=== PATIENT | male | born 1980 | race Caucasian/White ===

== ENCOUNTER 2016-12-04 22:33 | Inpatient (IN) | payer BC, OTHER ==
[~2016-12-04] VITALS: Ht 180.3 cm; Wt 105.8 kg
[2016-12-04 22:30] VITALS: O2SAT 98
[~2016-12-04 22:33] MED LIST: ADENOSINE IV SOLN 3 MG/ML 2 ML VIAL IV PUSH ONE
[2016-12-04] MEDS ORDERED: LIDOCAINE HCL 1% PF 30 ML VIAL ONE (22:50)
[2016-12-04] MEDS ORDERED: DILTIAZEM HCL 25 MG/5 ML VIAL ONE (22:54)
[2016-12-04 23:00] VITALS: O2SAT 96
[2016-12-04] MEDS ORDERED: fentaNYL CITRATE 250 MCG/5 ML AMP ONE (23:15)
[2016-12-04] MEDS ORDERED: IOHEXOL 350 MG/ML 10 ML VIAL (for RAD DIAG) IV ONE (23:25)
[2016-12-04 23:26] LABS: APTT (PATIENT) 23.1 SEC (24.3-30.1); BASOPHIL % 0.1 % (0.0-2.0); EOSINOPHIL # 0.2 TH/MM3 (0-0.4); EOSINOPHIL % 0.4 % (0.0-4.0); HEMATOCRIT 38.4 % (39.0-51.0); HEMO FLAGS AUTO DIFF; LYMPH % 10.1 % (9.0-44.0); LYMPHOCYTE # 4.1 TH/MM3 (1.0-4.8); MEAN CELL VOLUME 86.3 FL (80.0-100.0); MEAN CORPUSCULAR HEMOGLOBIN 29.3 PG (27.0-34.0); MEAN CORPUSCULAR HGB CONC 33.9 % (32.0-36.0); MONO % 4.4 % (0.0-8.0); PLATELET COUNT 321 TH/MM3 (150-450); PROTHROMBIN TIME - PATIENT 11.6 SEC (9.8-11.6); RED BLOOD COUNT 4.45 MIL/MM3 (4.50-5.90); RED CELL DISTRIBUTION WIDTH 14.3 % (11.6-17.2); WHITE BLOOD COUNT 40.1 TH/MM3 (4.0-11.0)
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
[2016-12-04 23:40] LABS: BANDS 11 % (0-6); MYELOCYTES 1 % (0-0); NEUTROPHIL # MANUAL DIFF 33.7 TH/MM3 (1.8-7.7); POLYS (SEG NEUTROPHILS) 72 % (16-70); WBC DIFF SAMPLE 100
[2016-12-04 23:41] LABS: PLATELET ESTIMATE SMEAR NORMAL (NORMAL); PLATELET MORPHOLOGY NORMAL (NORMAL); SCAN/DIFF FINAL DIFF MANUAL
--- NOTE | 2016-12-04 23:41 | RADRPT ---
EXAM DATE/TIME: 12/04/2016 22:47 [facility] COMPARISON: No previous studies available for comparison. INDICATIONS : Left sided chest tube placement. MEDICAL HISTORY : None. SURGICAL HISTORY : None. ENCOUNTER: Initial ACUITY: 1 day PAIN SCORE: 10/10 LOCATION: Left chest FINDINGS: There is a left chest tube. A pneumothorax is not seen on this portable supine chest x-ray. The heart size is normal. There is some patchy increased density at the left lung. Left-sided rib fractures ar e seen. CONCLUSION: New left chest tube in good position. Russell Garibay MD on December 04, 2016 at 23:37 Board Certified Radiologist. This report was verified electronically.
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
[2016-12-05] VITALS (20 sets, daily range): BP systolic 84–117; BP diastolic 47–61; PULSE 94–150; RESP 16–17; TEMP 98.3–99.3; O2SAT 98–100
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
[2016-12-05] MEDS ORDERED: NALOXONE HCL 0.4 MG/ML AMP IV PRN (00:30)
[2016-12-05] MEDS ORDERED: SODIUM CHLORIDE 0.9% FLUSH 5 ML FLUSH IVF PRN (00:30)
[2016-12-05] MEDS ORDERED: Post-op Orders (for Pharmacy) MISC XX ONE (00:30)
[2016-12-05] MEDS: metroNIDAZOLE 500 MG INJ 100 ML IV SCH ×4 (00:59→16:37)
[2016-12-05 01:16] LABS: BLOOD GAS BASE EXCESS -8.3 mmol/L (-2-2); BLOOD GAS CARBOXYHEMOGLOBIN 1.2 % (0-4); BLOOD GAS HCO3 18 mmol/L (22-26); BLOOD GAS METHEMOGLOBIN 1.1 % (0-2); BLOOD GAS O2 HGB SATURATION 97 % (90-100); BLOOD GAS OXYGEN CONTENT 15.3 Vol % (12.0-20.0); BLOOD GAS PCO2 50 mmHg (38-42); BLOOD GAS PO2 221 mmHg (61-120); BLOOD GAS TOTAL HGB 10.9 G/DL (12.0-16.0); TEMP CORR TO 98.6
[2016-12-05 01:17] LABS: CRITICAL VALUE YES; FIO2 100 %; STAT NO
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
[2016-12-05] MEDS ORDERED: PROPOFOL 1000 MG/100 ML INJ 100 ML ONE (02:02)
[2016-12-05] MEDS: SODIUM CHLOR 0.9% 1000 ML INJ 1,000 ML IV SCH ×4 (02:30→20:29)
[2016-12-05] MEDS ORDERED: fentaNYL CITRATE 250 MCG/5 ML AMP ONE (02:37)
[2016-12-05] MEDS ORDERED: MIDAZOLAM HCL 2 MG/2 ML VIAL ONE (02:37)
[2016-12-05] MEDS: fentaNYL 2,500 MCG/NS 250 ML IV SCH ×2 (02:54→13:47)
--- NOTE | 2016-12-05 03:02 | RADRPT ---
EXAM DATE/TIME: 12/05/2016 02:34 [facility] COMPARISON: CHEST SINGLE AP, December 04, 2016, 22:47. INDICATIONS : E-T tube placement. MEDICAL HISTORY : None. SURGICAL HISTORY : None. ENCOUNTER: Subsequent ACUITY: 1 day PAIN SCORE: Non-responsive. LOCATION: Bilateral chest FINDINGS: ET tube and NG tube are well placed. The heart size is normal. There is a left-sided chest tube. Ther e is left pleural fluid present. A pneumothorax is not seen on this semiupright portable chest x-ray. Left-sided rib fractures are seen. There is subcutaneous emphysema seen on the left side. There is a drain in the left upper quadrant. CONCLUSION: ET tube in good position. Russell Garibay MD on December 05, 2016 at 2:59 Board Certified Radiologist. This report was verified electronically.
[2016-12-05] MEDS: PANTOPRAZOLE SODIUM 40 MG VIAL IV SCH (03:26)
[2016-12-05 04:45] LABS: HEMATOCRIT 33.6 % (39.0-51.0); MEAN CELL VOLUME 83.4 FL (80.0-100.0); MEAN CORPUSCULAR HEMOGLOBIN 28.5 PG (27.0-34.0); MEAN CORPUSCULAR HGB CONC 34.2 % (32.0-36.0); PLATELET COUNT 199 TH/MM3 (150-450); RED BLOOD COUNT 4.03 MIL/MM3 (4.50-5.90); RED CELL DISTRIBUTION WIDTH 14.9 % (11.6-17.2); REVIEW FLAG FINAL; WHITE BLOOD COUNT 24.1 TH/MM3 (4.0-11.0)
[2016-12-05 05:21] LABS: BICARBONATE 22.4 MEQ/L (21.0-32.0); POTASSIUM 3.9 MEQ/L (3.5-5.1)
[2016-12-05 05:50] LABS: CALCIUM-PROTEIN CORRECTED 8.1 MG/DL (8.5-10.1)
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
[2016-12-05 06:03] LABS: BLOOD GAS BASE EXCESS -4.1 mmol/L (-2-2); BLOOD GAS CARBOXYHEMOGLOBIN 1.3 % (0-4); BLOOD GAS HCO3 20 mmol/L (22-26); BLOOD GAS METHEMOGLOBIN 0.7 % (0-2); BLOOD GAS O2 HGB SATURATION 98 % (90-100); BLOOD GAS OXYGEN CONTENT 13.1 Vol % (12.0-20.0); BLOOD GAS PCO2 35 mmHg (38-42); BLOOD GAS PO2 183 mmHg (61-120); BLOOD GAS TOTAL HGB 9.3 G/DL (12.0-16.0); CRITICAL VALUE NO; DRAW SITE ALINE; FIO2 50 %; STAT NO; TEMP CORR TO 98.6
[2016-12-05] MEDS: PROPOFOL 1000 MG/100 ML IV SCH ×4 (06:22→17:55)
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
[2016-12-05] MEDS ORDERED: DEXTROSE 50% IN WATER 50 ML VIAL(D50) IV PUSH PRN (07:45)
[2016-12-05] MEDS ORDERED: GLUCAGON 1 MG/ML VIAL OTHER PRN (07:45)
[2016-12-05] MEDS ORDERED: POTASSIUM PHOSPHATE MONOBASIC 500 MG TAB PO/TUBE PRN (08:00)
[2016-12-05] MEDS ORDERED: CHLORHEXIDINE GLUCONATE 2 % 1 PACK (2 CLOTHS) TOP PRN (08:00)
[2016-12-05] MEDS ORDERED: POTASSIUM CL 40 MEQ/30 ML LIQ UDC PO/TUBE PRN ×2 (08:00)
[2016-12-05] MEDS ORDERED: MISCELLANEOUS NURSING INFORMATION XX SCH (08:00)
[2016-12-05] MEDS ORDERED: MAGNESIUM SULFATE INJ 4 GM in SODIUM CHLORIDE 0.9% INJ 92 ML IV PRN (08:00)
[2016-12-05] MEDS ORDERED: POTASSIUM CHLOR 20 MEQ PREMIX 100 ML IV PRN ×2 (08:00)
[2016-12-05] MEDS: INSULIN ASPART SUPPLEMENTAL SCALE SQ SCH ×3 (08:00→20:00)
[2016-12-05] MEDS: CHLORHEXIDINE 0.12% (ORAL KIT) 15 ML CUP MT SCH ×2 (08:00→20:28)
[2016-12-05] MEDS ORDERED: POTASSIUM PHOSPHATE INJ 30 MMOL in SODIUM CHLOR 0.9% 250 ML INJ 250 ML IV PRN (08:00)
[2016-12-05] MEDS ORDERED: MAGNESIUM OXIDE 400 MG TAB PO PRN (08:00)
[2016-12-05] MEDS ORDERED: MAGNESIUM SULFATE INJ 2 GM in SODIUM CHLORIDE 0.9% INJ 96 ML IV PRN (08:00)
[2016-12-05] MEDS ORDERED: POTASSIUM CHLOR 40 MEQ PREMIX 100 ML IV PRN (08:00)
[2016-12-05] MEDS ORDERED: POTASSIUM PHOSPHATE MONOBASIC 500 MG TAB PO PRN (08:00)
[2016-12-05] MEDS: SODIUM CHLORIDE 0.9% FLUSH 5 ML FLUSH IVF SCH ×2 (08:55→20:30)
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
[2016-12-05] MEDS ORDERED: LACTATED RINGER'S 1000 ML INJ 2,000 ML IV ONE (12:00)
[2016-12-05] MEDS ORDERED: PHENYLEPH/NS 1000 MCG/10 ML SYR IV ONE (12:00)
[2016-12-05] MEDS ORDERED: NORMOSOL R INJ 3,000 ML IV ONE (12:00)
[2016-12-05] MEDS ORDERED: PROPOFOL 200 MG/20 ML AMP IV ONE (12:00)
[2016-12-05] MEDS ORDERED: SODIUM CHLOR 0.9% 1000 ML INJ 1,000 ML IV ONE (12:45)
[2016-12-05] MEDS ORDERED: ALBUMIN HUMAN 5% 25 GM/500 ML BOTTLE IV ONE (12:45)
[2016-12-05] MEDS ORDERED: TERBUTALINE INJ 1 MG/ML AMP SQ PRN (13:15)
[2016-12-05] MEDS: NOREPINEPHRINE-DEXTROSE DRIP 250 ML IV SCH ×2 (13:48→20:29)
[2016-12-05 14:33] LABS: HEMATOCRIT 25.3 % (39.0-51.0); REVIEW FLAG FINAL
[2016-12-05] MEDS ORDERED: SODIUM CHLOR 0.9% 250 ML INJ 250 ML IV ONE (15:15)
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
--- NOTE | 2016-12-05 19:13 | RADRPT ---
EXAM DATE/TIME: 12/05/2016 18:52 [facility] COMPARISON: No previous studies available for comparison. INDICATIONS : Central line placement. MEDICAL HISTORY : Unobtainable. SURGICAL HISTORY : Unobtainable. ENCOUNTER: Initial ACUITY: 1 day PAIN SCORE: Non-responsive. LOCATION: Left chest subclavian FINDINGS: Lung volumes are small. Patchy airspace opacities are modestly worse in the interim. A small hydropne umothorax is seen of the left apex. Large caliber left chest tube remains in place, near the base. Th ere is a surgical drain in the left upper quadrant. New left subclavian central venous catheter with tip in the superior vena cava. Patient remains intubated. Endotracheal tube tip is about 4 cm above the suzanne. Nasogastric tube cou rses into the stomach. CONCLUSION: 1. New left IJ central venous catheter with tip in the superior vena cava. There is a tiny left apica l hydropneumothorax but probably not related to the central line. Severely comminuted left rib fractu res and a chest tube again noted. 2. Patchy bilateral air space opacities worsening. Lung markings are small. 3. Nasogastric tube, endotracheal tube and left upper quadrant abdominal drain again noted. Russell Bronson MD on December 05, 2016 at 19:09 Board Certified Radiologist. This report was verified electronically.
[2016-12-06] VITALS (19 sets, daily range): BP systolic 93–127; BP diastolic 54–67; PULSE 99–124; RESP 12–24; TEMP 99.1–99.8; O2SAT 97–100
[2016-12-06] MEDS: PANTOPRAZOLE SODIUM 40 MG VIAL IV SCH ×2 (00:25→23:34)
[2016-12-06] MEDS: PROPOFOL 1000 MG/100 ML IV SCH ×5 (00:57→19:42)
[2016-12-06] MEDS: fentaNYL 2,500 MCG/NS 250 ML IV SCH ×2 (00:57→14:57)
[2016-12-06] MEDS: INSULIN ASPART SUPPLEMENTAL SCALE SQ SCH ×4 (02:00→20:00)
[2016-12-06] MEDS: CHLORHEXIDINE GLUCONATE 2 % 1 PACK (2 CLOTHS) TOP SCH (04:00)
[2016-12-06 05:09] LABS: AUTOMATED NEUTROPHIL # 12.2 TH/MM3 (1.8-7.7); BASOPHIL # 0.1 TH/MM3 (0-0.2); BASOPHIL % 0.6 % (0.0-2.0); EOSINOPHIL # 0.3 TH/MM3 (0-0.4); EOSINOPHIL % 1.6 % (0.0-4.0); HEMATOCRIT 27.8 % (39.0-51.0); LYMPH % 12.2 % (9.0-44.0); LYMPHOCYTE # 2.1 TH/MM3 (1.0-4.8); MEAN CELL VOLUME 84.8 FL (80.0-100.0); MEAN CORPUSCULAR HEMOGLOBIN 29.9 PG (27.0-34.0); MEAN CORPUSCULAR HGB CONC 35.2 % (32.0-36.0); MONO % 13.3 % (0.0-8.0); NEUT % 72.3 % (16.0-70.0); PLATELET COUNT 147 TH/MM3 (150-450); RED BLOOD COUNT 3.28 MIL/MM3 (4.50-5.90); RED CELL DISTRIBUTION WIDTH 15.3 % (11.6-17.2); WHITE BLOOD COUNT 16.9 TH/MM3 (4.0-11.0)
[2016-12-06 05:13] LABS: HEMO FLAGS AUTO DIFF
[2016-12-06 05:42] LABS: CALCIUM-PROTEIN CORRECTED 8.2 MG/DL (8.5-10.1); POTASSIUM 3.3 MEQ/L (3.5-5.1); TOTAL BILIRUBIN ADULT 0.5 MG/DL (0.2-1.0)
[2016-12-06] MEDS: SODIUM CHLOR 0.9% 1000 ML INJ 1,000 ML IV SCH ×4 (05:56→23:13)
[2016-12-06 06:12] LABS: BANDS 26 % (0-6); BASOPHILS 1 % (0-2); EOSINOPHILS 2 % (0-4); PLATELET ESTIMATE SMEAR NORMAL (NORMAL); PLATELET MORPHOLOGY NORMAL (NORMAL); POLYS (SEG NEUTROPHILS) 57 % (16-70); SCAN/DIFF FINAL DIFF MANUAL; WBC DIFF SAMPLE 100
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
--- NOTE | 2016-12-06 06:28 | RADRPT ---
EXAM DATE/TIME: 12/06/2016 05:01 [facility] COMPARISON: CHEST SINGLE AP, December 05, 2016, 18:52. INDICATIONS : Shortness of breath. MEDICAL HISTORY : Unobtainable. SURGICAL HISTORY : Unobtainable. ENCOUNTER: Subsequent ACUITY: 3 days PAIN SCORE: Non-responsive. LOCATION: Bilateral chest FINDINGS: ET tube, left subclavian line, NG tube and left chest tube are well placed. There continues to be a s mall left hydropneumothorax seen. Left rib fractures are seen. There is consolidation or atelectasis at the left base. Right lung is clear. CONCLUSION: Small left hydropneumothorax with a left chest tube in place. Russell Garibay MD on December 06, 2016 at 6:25 Board Certified Radiologist. This report was verified electronically.
[2016-12-06] MEDS: POTASSIUM CHLOR 40 MEQ PREMIX 100 ML IV PRN (06:29)
[2016-12-06 06:45] LABS: BLOOD GAS BASE EXCESS -2.8 mmol/L (-2-2); BLOOD GAS CARBOXYHEMOGLOBIN 1.7 % (0-4); BLOOD GAS HCO3 21 mmol/L (22-26); BLOOD GAS METHEMOGLOBIN 0.8 % (0-2); BLOOD GAS O2 HGB SATURATION 96 % (90-100); BLOOD GAS OXYGEN CONTENT 13.3 Vol % (12.0-20.0); BLOOD GAS PCO2 34 mmHg (38-42); BLOOD GAS PO2 94 mmHg (61-120); BLOOD GAS TOTAL HGB 9.8 G/DL (12.0-16.0); CRITICAL VALUE NO; OXYGEN DEVICE VENTILATOR; TEMP CORR TO 98.6
[2016-12-06 06:46] LABS: DRAW SITE ART LINE; FIO2 35 %; VENT SETTINGS PRVC
[2016-12-06 06:47] LABS: STAT NO
[2016-12-06] MEDS: CHLORHEXIDINE 0.12% (ORAL KIT) 15 ML CUP MT SCH ×2 (07:41→21:51)
[2016-12-06] MEDS: SODIUM CHLORIDE 0.9% FLUSH 5 ML FLUSH IVF SCH ×2 (07:42→21:50)
[2016-12-06] MEDS: TOBRAMYCIN SULFATE 0.3% OPTH OINT 3.5 GM TUBE RIGHT EYE SCH (08:55)
[2016-12-06] MEDS: SODIUM PHOSPHATE INJ 30 MMOL in SODIUM CHLOR 0.9% 250 ML INJ 240 ML IV PRN (08:55)
[2016-12-06] MEDS ORDERED: FUROSEMIDE 40 MG/4 ML VIAL IV PUSH ONE (09:45)
[2016-12-06] MEDS ORDERED: LIDOCAINE HCL 2% 100 MG/5 ML SYRINGE ONE (09:54)
[2016-12-06] MEDS ORDERED: ATROPINE SULFATE 1 MG/10 ML SYRINGE ONE (09:54)
[2016-12-06] MEDS ORDERED: EPINEPHrine HCL (1:10,000) 1 MG/10 ML SYRINGE ONE (09:54)
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
--- NOTE | 2016-12-06 11:38 | RADRPT ---
EXAM DATE/TIME: 12/06/2016 10:48 [facility] COMPARISON: CT LUMBAR SPINE W/O CONTRAST, December 05, 2016, 9:45. INDICATIONS : Post trauma spinal fracture. MEDICAL HISTORY : Hypertension. SURGICAL HISTORY : Tonsillectomy. Splenectomy. hernia ENCOUNTER: Subsequent ACUITY: 2 day PAIN SCORE: Nonresponsive. LOCATION: back TECHNIQUE: Multiplanar multisequence MRI of the lumbar spine was performed without contrast. FINDINGS: The most caudal appearing lumbar vertebra is numbered as L5. VERTEBRAE: There is edema and fracture within L3 vertebral body with mild depression of the superior endplate. F racture extends through the vertebral body and a longitudinal dimension. No significant retropulsion of posterior fragments. No canal stenosis. There is also fracture at T12. Disc spaces are maintained. CONUS: Normal level and configuration. T12-L1: The thecal sac has a normal diameter. No evidence of disc bulge or protrusion. The neural foramina are patent bilaterally. L1-L2: The thecal sac has a normal diameter. No evidence of disc bulge or protrusion. The neural foramina are patent bilaterally. L2-L3: The thecal sac has a normal diameter. No evidence of disc bulge or protrusion. The neural foramina are patent bilaterally. L3-L4: The thecal sac has a normal diameter. No evidence of disc bulge or protrusion. The neural foramina are patent bilaterally. L4-L5: Mild broad-based protrusion abuts the ventral thecal sac. No canal stenosis. The neural foramina are patent bilaterally. L5-S1: Mild right paracentral protrusion abuts the ventral thecal sac and abuts the right S1 nerve root in l ateral recess. No canal stenosis. The neural foramina are patent bilaterally. CONCLUSION: 1. Mild broad-based protrusion at L4-5 without canal stenosis. 2. Mild right paracentral protrusion at L5-S1 abuts the right S1 nerve root lateral recess without ca nal stenosis. 3. Mild fracture through L3 vertebral body. No retropulsion of posterior fragments or canal stenosis. 4. Fracture at T12. Laci Crandall MD on December 06, 2016 at 11:29 Board Certified Radiologist. This report was verified electronically.
--- NOTE | 2016-12-06 11:46 | RADRPT ---
EXAM DATE/TIME: 12/06/2016 10:48 [facility] COMPARISON: CT THORACIC SPINE W/O CONTRAST, December 05, 2016, 9:45. INDICATIONS : Post trauma spinal fracture. MEDICAL HISTORY : Hypertension. SURGICAL HISTORY : Tonsillectomy. Splenectomy. hernia ENCOUNTER: Subsequent ACUITY: 2 day PAIN SCORE: Nonresponsive. LOCATION: back TECHNIQUE: Multiplanar multisequence MRI of the thoracic spine was performed. FINDINGS: VERTEBRA: Mild fracture through the superior endplate at T11. No retropulsion of posterior fragments or canal s tenosis. There is also a fracture at T12 extending through the vertebral bodies vertically. Slight lo ss of height. Minimal retropulsion of posterior fragments superiorly abuts the ventral thecal sac. No canal stenosis. Extensive soft tissue injury posteriorly at the cervical thoracic junction extending to C5 region. Fracture on the spinous process at T9 not well-seen on MRI. ALIGNMENT: Normal. CORD: Normal position and configuration. Bilateral pleural effusions. Subcapsular hematoma left kidney posteriorly. T1-T2: Normal. T2-T3: The thecal sac has a normal diameter. No evidence of disc bulge or protrusion. T3-T4: The thecal sac has a normal diameter. No evidence of disc bulge or protrusion. T4-T5: The thecal sac has a normal diameter. No evidence of disc bulge or protrusion. T5-T6: The thecal sac has a normal diameter. No evidence of disc bulge or protrusion. T6-T7: The thecal sac has a normal diameter. No evidence of disc bulge or protrusion. T7-T8: The thecal sac has a normal diameter. No evidence of disc bulge or protrusion. T8-T9: The thecal sac has a normal diameter. No evidence of disc bulge or protrusion. T9-T10: The thecal sac has a normal diameter. No evidence of disc bulge or protrusion. T10-T11: The thecal sac has a normal diameter. No evidence of disc bulge or protrusion. T11-T12: The thecal sac has a normal diameter. No evidence of disc bulge or protrusion. T12-L1: The thecal sac has a normal diameter. No evidence of disc bulge or protrusion. CONCLUSION: 1. Fractures at T11 and T12. Minimal retropulsion of superior fragment posteriorly at T12 but no juan l stenosis. 2. No canal stenosis. 3. Extensive soft tissue injury posteriorly along the upper thoracic spine. Laci Crandall MD on December 06, 2016 at 11:37 Board Certified Radiologist. This report was verified electronically.
--- NOTE | 2016-12-06 11:53 | RADRPT ---
EXAM DATE/TIME: 12/06/2016 10:48 [facility] COMPARISON: CT CERVICAL SPINE W/O CONTRAST, December 04, 2016, 23:20. INDICATIONS : Post trauma spinal fracture. MEDICAL HISTORY : Hypertension. SURGICAL HISTORY : Tonsillectomy. Splenectomy. hernia ENCOUNTER: Subsequent ACUITY: 2 day PAIN SCORE: Nonresponsive. LOCATION: back TECHNIQUE: Multiplanar, multisequence MRI examination of the cervical spine was performed. FINDINGS: VERTEBRAE: Normal vertebral body height. Homogeneous marrow signal. There are fractures through T1 and T2 spino us processes. Extensive soft tissue injury in this region with hematoma. ALIGNMENT: No evidence of subluxation. CORD: Normal configuration and signal. POST FOSSA: The cerebellar tonsils are normal in position. C2-C3: The thecal sac has a normal configuration. There is no evidence of disc herniation or spinal canal s tenosis. The neural foramina are patent bilaterally. C3-C4: The thecal sac has a normal configuration. There is no evidence of disc herniation or spinal canal s tenosis. The neural foramina are patent bilaterally. C4-C5: The thecal sac has a normal configuration. There is no evidence of disc herniation or spinal canal s tenosis. The neural foramina are patent bilaterally. C5-C6: The thecal sac has a normal configuration. There is no evidence of disc herniation or spinal canal s tenosis. The neural foramina are patent bilaterally. C6-C7: The thecal sac has a normal configuration. There is no evidence of disc herniation or spinal canal s tenosis. The neural foramina are patent bilaterally. C7-T1: The thecal sac has a normal configuration. There is no evidence of disc herniation or spinal canal s tenosis. The neural foramina are patent bilaterally. CONCLUSION: 1. Unremarkable cervical spine. No canal stenosis. 2. Fractures of the spinous process at T1 and T2. Soft tissue injury with soft tissue hematoma sample washer iorly. Laci Crandall MD on December 06, 2016 at 11:48 Board Certified Radiologist. This report was verified electronically.
[2016-12-06 13:58] LABS: BLOOD GAS BASE EXCESS -3.5 mmol/L (-2-2); BLOOD GAS CARBOXYHEMOGLOBIN 1.1 % (0-4); BLOOD GAS HCO3 21 mmol/L (22-26); BLOOD GAS METHEMOGLOBIN 0.9 % (0-2); BLOOD GAS O2 HGB SATURATION 98 % (90-100); BLOOD GAS OXYGEN CONTENT 15.2 Vol % (12.0-20.0); BLOOD GAS PCO2 39 mmHg (38-42); BLOOD GAS PO2 237 mmHg (61-120); BLOOD GAS TOTAL HGB 10.6 G/DL (12.0-16.0); TEMP CORR TO 98.6
[2016-12-06 13:59] LABS: CRITICAL VALUE NO; OXYGEN DEVICE VENT
[2016-12-06 14:01] LABS: DRAW SITE RT RADIAL; FIO2 50 %; STAT NO; VENT SETTINGS APRV/4/30/1/5PSV
[2016-12-06] MEDS: METOPROLOL TARTRATE 25 MG TAB PO SCH ×2 (14:47→21:00)
--- NOTE | 2016-12-06 16:21 | PD.PROCEDR ---
Procedure Note Procedure DX: Hypoxemic Respiratory Failure (J96.01) OP: Insertion Right Radial Artery Line ([id number]) Procedure: Emmanuel test normal right hand. Right wrist supinated, preppe and draped. Right radial artery cannulated and wire advanced. Cannula passed over wire to 3cm. Good waveform observed. Dressing applied. Circulation to hand intact after procedure. Rich Leija MD Dec 06, 2016 16:21
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
[2016-12-07] VITALS (18 sets, daily range): BP systolic 113–151; BP diastolic 61–77; PULSE 94–114; RESP 12–18; TEMP 98.2–99.6; O2SAT 97–100
[2016-12-07] MEDS: PROPOFOL 1000 MG/100 ML IV SCH ×4 (00:48→23:30)
[2016-12-07] MEDS: INSULIN ASPART SUPPLEMENTAL SCALE SQ SCH ×4 (01:30→20:00)
[2016-12-07] MEDS: NOREPINEPHRINE-DEXTROSE DRIP 250 ML IV SCH (02:18)
[2016-12-07] MEDS: CHLORHEXIDINE GLUCONATE 2 % 1 PACK (2 CLOTHS) TOP SCH (04:01)
[2016-12-07] MEDS: SODIUM CHLOR 0.9% 1000 ML INJ 1,000 ML IV SCH ×3 (04:02→23:30)
[2016-12-07 04:23] LABS: HEMATOCRIT 28.9 % (39.0-51.0); MEAN CELL VOLUME 85.6 FL (80.0-100.0); MEAN CORPUSCULAR HEMOGLOBIN 29.7 PG (27.0-34.0); MEAN CORPUSCULAR HGB CONC 34.7 % (32.0-36.0); PLATELET COUNT 172 TH/MM3 (150-450); RED BLOOD COUNT 3.38 MIL/MM3 (4.50-5.90); RED CELL DISTRIBUTION WIDTH 15.6 % (11.6-17.2); WHITE BLOOD COUNT 18.4 TH/MM3 (4.0-11.0)
[2016-12-07 04:46] LABS: HEMO FLAGS AUTO DIFF
[2016-12-07 05:01] LABS: BICARBONATE 23.9 MEQ/L (21.0-32.0); POTASSIUM 3.5 MEQ/L (3.5-5.1)
--- NOTE | 2016-12-07 05:09 | RADRPT ---
EXAM DATE/TIME: 12/07/2016 04:07 [place] COMPARISON: CHEST SINGLE AP, December 06, 2016, 5:01. INDICATIONS : Shortness of breath. MEDICAL HISTORY : Hypertension. SURGICAL HISTORY : Tonsillectomy. Splenectomy. Hernia ENCOUNTER: Subsequent ACUITY: 4 - 6 days PAIN SCORE: Non-responsive. LOCATION: Bilateral chest FINDINGS: ET tube, NG tube, left subclavian line and left chest tube are well placed. There is a minimal pneumo thorax seen over the left apex measuring 3-4 mm in thickness. There is a drain in the left upper quad rant. There is increased density at the right lung base. The left lung appears relatively clear. CONCLUSION: 1. Minimal left pneumothorax with a left-sided chest tube in place. 2. Right lower lung atelectasis or consolidation. Russell Garibay MD on December 07, 2016 at 5:05 Board Certified Radiologist. This report was verified electronically.
[2016-12-07 05:12] LABS: BLOOD GAS BASE EXCESS -4.8 mmol/L (-2-2); BLOOD GAS CARBOXYHEMOGLOBIN 1.1 % (0-4); BLOOD GAS HCO3 19 mmol/L (22-26); BLOOD GAS METHEMOGLOBIN 0.8 % (0-2); BLOOD GAS O2 HGB SATURATION 98 % (90-100); BLOOD GAS OXYGEN CONTENT 14.3 Vol % (12.0-20.0); BLOOD GAS PCO2 31 mmHg (38-42); BLOOD GAS PO2 252 mmHg (61-120); BLOOD GAS TOTAL HGB 9.9 G/DL (12.0-16.0); CRITICAL VALUE YES; TEMP CORR TO 98.6
[2016-12-07 05:13] LABS: DRAW SITE ALINE; FIO2 50 %; STAT NO
[2016-12-07 05:16] LABS: CALCIUM-PROTEIN CORRECTED 8.5 MG/DL (8.5-10.1)
[2016-12-07] MEDS: fentaNYL 2,500 MCG/NS 250 ML IV SCH ×2 (05:27→23:30)
[2016-12-07 07:05] LABS: BANDS 1 % (0-6); EOSINOPHILS 5 % (0-4); MYELOCYTES 1 % (0-0); NEUTROPHIL # MANUAL DIFF 14.2 TH/MM3 (1.8-7.7); POLYS (SEG NEUTROPHILS) 75 % (16-70); WBC DIFF SAMPLE 100
[2016-12-07 07:06] LABS: PLATELET ESTIMATE SMEAR NORMAL (NORMAL); PLATELET MORPHOLOGY NORMAL (NORMAL)
[2016-12-07 07:07] LABS: SCAN/DIFF FINAL DIFF MANUAL
[2016-12-07] MEDS: SODIUM CHLORIDE 0.9% FLUSH 5 ML FLUSH IVF SCH ×2 (08:01→20:57)
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
[2016-12-07] MEDS: CHLORHEXIDINE 0.12% (ORAL KIT) 15 ML CUP MT SCH ×2 (09:52→20:57)
[2016-12-07] MEDS: METOPROLOL TARTRATE 25 MG TAB PO SCH ×2 (09:52→20:56)
[2016-12-07] MEDS: TOBRAMYCIN SULFATE 0.3% OPTH OINT 3.5 GM TUBE RIGHT EYE SCH (09:53)
[2016-12-07] MEDS ORDERED: BUMETANIDE INJ 1 MG/4 ML VIAL IV PUSH ONE (10:00)
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
--- NOTE | 2016-12-07 22:20 | EKG ---
Date Performed: 12/06/2016 Time Performed: 20:03:21 PTAGE: 36 years EKG: SINUS TACHYCARDIA NONSPECIFIC T-WAVE ABNORMALITY ABNORMAL RHYTHM ECG NO PREVIOUS TRACING DOCTOR: Derrick Caballero Interpretating Date/Time 12/07/2016 22:18:10
[2016-12-07] MEDS: PANTOPRAZOLE SODIUM 40 MG VIAL IV SCH (23:30)
[2016-12-08] VITALS (17 sets, daily range): BP systolic 112–147; BP diastolic 51–77; PULSE 68–96; RESP 12–18; TEMP 98.3–99.4; O2SAT 98–100
[2016-12-08 00:55] LABS: POTASSIUM 4.1 MEQ/L (3.5-5.1)
[2016-12-08] MEDS: INSULIN ASPART SUPPLEMENTAL SCALE SQ SCH ×4 (02:00→20:00)
[2016-12-08] MEDS: CHLORHEXIDINE GLUCONATE 2 % 1 PACK (2 CLOTHS) TOP SCH (04:00)
[2016-12-08 04:57] LABS: AUTOMATED NEUTROPHIL # 15.6 TH/MM3 (1.8-7.7); BASOPHIL # 0.1 TH/MM3 (0-0.2); BASOPHIL % 0.3 % (0.0-2.0); EOSINOPHIL # 0.6 TH/MM3 (0-0.4); EOSINOPHIL % 3.2 % (0.0-4.0); HEMATOCRIT 27.4 % (39.0-51.0); LYMPH % 6.3 % (9.0-44.0); LYMPHOCYTE # 1.3 TH/MM3 (1.0-4.8); MEAN CELL VOLUME 85.9 FL (80.0-100.0); MEAN CORPUSCULAR HEMOGLOBIN 29.5 PG (27.0-34.0); MEAN CORPUSCULAR HGB CONC 34.3 % (32.0-36.0); NEUT % 78.2 % (16.0-70.0); PLATELET COUNT 253 TH/MM3 (150-450); RED BLOOD COUNT 3.19 MIL/MM3 (4.50-5.90); RED CELL DISTRIBUTION WIDTH 15.4 % (11.6-17.2); WHITE BLOOD COUNT 19.9 TH/MM3 (4.0-11.0)
[2016-12-08 04:59] LABS: HEMO FLAGS AUTO DIFF
[2016-12-08 05:25] LABS: BICARBONATE 28.2 MEQ/L (21.0-32.0); MAGNESIUM 2.2 MG/DL (1.5-2.5); POTASSIUM 3.8 MEQ/L (3.5-5.1)
--- NOTE | 2016-12-08 06:23 | RADRPT ---
EXAM DATE/TIME: 12/08/2016 04:51 [facility] COMPARISON: CHEST SINGLE AP, December 07, 2016, 4:07. INDICATIONS : Shortness of breath MEDICAL HISTORY : Hypertension SURGICAL HISTORY : Tonsillectomy. Splenectomy. Hernia ENCOUNTER: Subsequent ACUITY: 4 - 6 days PAIN SCORE: Non-responsive. LOCATION: Bilateral chest FINDINGS: The ET tube, NG tube, and left subclavian line are well placed. The heart size is normal. The lungs a re clear. Left-sided rib fractures are present. There is a surgical drain in the left upper quadrant. Pneumothorax is not seen. CONCLUSION: Left rib fractures. Russell Garibay MD on December 08, 2016 at 6:21 Board Certified Radiologist. This report was verified electronically.
[2016-12-08] MEDS: PROPOFOL 1000 MG/100 ML IV SCH ×3 (07:00→23:34)
[2016-12-08 07:03] LABS: SCAN/DIFF AUTO DIFF CONFIRMED
[2016-12-08] MEDS: SODIUM CHLORIDE 0.9% FLUSH 5 ML FLUSH IVF SCH ×2 (07:17→21:51)
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
[2016-12-08] MEDS ORDERED: FUROSEMIDE 20 MG/2 ML VIAL IV PUSH ONE (07:30)
[2016-12-08] MEDS ORDERED: LABETALOL HCL 100 MG/20 ML VIAL IV PUSH PRN (07:30)
[2016-12-08] MEDS: SODIUM CHLOR 0.9% 1000 ML INJ 1,000 ML IV SCH ×2 (08:16→14:56)
[2016-12-08] MEDS: CHLORHEXIDINE 0.12% (ORAL KIT) 15 ML CUP MT SCH ×2 (08:43→21:52)
[2016-12-08] MEDS: METOPROLOL TARTRATE 25 MG TAB PO SCH ×2 (08:44→21:51)
[2016-12-08] MEDS: TOBRAMYCIN SULFATE 0.3% OPTH OINT 3.5 GM TUBE RIGHT EYE SCH (08:44)
[2016-12-08] MEDS: LISINOPRIL 5 MG TAB PO SCH (08:44)
[2016-12-08] MEDS: DOCUSATE SODIUM 100 MG CAP PO SCH ×2 (08:44→21:51)
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
[2016-12-08] MEDS: SODIUM PHOSPHATE INJ 30 MMOL in SODIUM CHLOR 0.9% 250 ML INJ 240 ML IV PRN (12:39)
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
[2016-12-08 19:29] LABS: BACTERIA, URINE RARE /hpf; BLOOD, URINE NEG (NEG); COMMENT (UR) CATH-CULTURE IND; CULTURE IF INDICATED CATH CULTURE IND; GLUCOSE,URINE TRACE mg/dL (NEG); KETONE, URINE TRACE mg/dL (NEG); MUCUS URINE FEW /lpf (OCC); NITRITE,URINE NEG (NEG); PH, URINE 5.5 (5.0-8.5); URINE COLOR LIGHT-BROWN (YELLW/STRAW)
[2016-12-08] MEDS: MAGNESIUM HYDROXIDE SUSP 30 ML CUP PO SCH (21:51)
[2016-12-08 22:37] LABS: BICARBONATE 33.2 MEQ/L (21.0-32.0); POTASSIUM 3.5 MEQ/L (3.5-5.1)
[2016-12-08] MEDS: PANTOPRAZOLE SODIUM 40 MG VIAL IV SCH (23:34)
[2016-12-08] MEDS: fentaNYL 2,500 MCG/NS 250 ML IV SCH (23:34)
[2016-12-09] VITALS (14 sets, daily range): BP systolic 121–149; BP diastolic 52–67; PULSE 73–100; RESP 12; TEMP 98.7–99.1; O2SAT 100
[2016-12-09] MEDS: POTASSIUM CHLOR 40 MEQ PREMIX 100 ML IV PRN ×2 (01:04→16:23)
[2016-12-09] MEDS: SODIUM PHOSPHATE INJ 30 MMOL in SODIUM CHLOR 0.9% 250 ML INJ 240 ML IV PRN (01:06)
[2016-12-09] MEDS: INSULIN ASPART SUPPLEMENTAL SCALE SQ SCH ×4 (02:00→20:00)
[2016-12-09] MEDS: SODIUM CHLOR 0.9% 1000 ML INJ 1,000 ML IV SCH (03:15)
[2016-12-09] MEDS: CHLORHEXIDINE GLUCONATE 2 % 1 PACK (2 CLOTHS) TOP SCH (04:00)
--- NOTE | 2016-12-09 04:13 | RADRPT ---
EXAM DATE/TIME: 12/09/2016 03:21 [facility] COMPARISON: CHEST SINGLE AP, December 08, 2016, 4:51. INDICATIONS : Shortness of breath. MEDICAL HISTORY : Hypertension. SURGICAL HISTORY : Tonsillectomy. Splenectomy. Hernia. ENCOUNTER: Subsequent ACUITY: 4 - 6 days PAIN SCORE: Non-responsive. LOCATION: chest FINDINGS: Left-sided chest tube and endotracheal tube, NG tube again seen. The side-port of the NG tube is at t he expected location of the esophagogastric junction. The lungs are clear. Left-sided rib fractures a re present. Adjacent subcutaneous emphysema is noted. I do not see a pneumothorax. CONCLUSION: Clear lungs. Saul Hirsch MD on December 09, 2016 at 4:11 Board Certified Radiologist. This report was verified electronically.
[2016-12-09 04:25] LABS: BLOOD GAS BASE EXCESS 5.5 mmol/L (-2-2); BLOOD GAS CARBOXYHEMOGLOBIN 1.5 % (0-4); BLOOD GAS HCO3 30 mmol/L (22-26); BLOOD GAS METHEMOGLOBIN 0.7 % (0-2); BLOOD GAS O2 HGB SATURATION 97 % (90-100); BLOOD GAS PCO2 51 mmHg (38-42); BLOOD GAS PO2 154 mmHg (61-120); BLOOD GAS TOTAL HGB 8.6 G/DL (12.0-16.0); CRITICAL VALUE YES; OXYGEN DEVICE VENTILATOR; TEMP CORR TO 98.6
[2016-12-09 04:26] LABS: DRAW SITE ART LINE; FIO2 40 %; STAT NO; VENT SETTINGS PRVC/AC
[2016-12-09 05:53] LABS: AUTOMATED NEUTROPHIL # 10.3 TH/MM3 (1.8-7.7); BASOPHIL # 0.1 TH/MM3 (0-0.2); BASOPHIL % 0.5 % (0.0-2.0); EOSINOPHIL # 0.9 TH/MM3 (0-0.4); EOSINOPHIL % 6.1 % (0.0-4.0); HEMATOCRIT 24.5 % (39.0-51.0); LYMPH % 9.6 % (9.0-44.0); LYMPHOCYTE # 1.4 TH/MM3 (1.0-4.8); MEAN CELL VOLUME 86.8 FL (80.0-100.0); MEAN CORPUSCULAR HEMOGLOBIN 29.3 PG (27.0-34.0); MEAN CORPUSCULAR HGB CONC 33.7 % (32.0-36.0); MONO % 15.4 % (0.0-8.0); NEUT % 68.4 % (16.0-70.0); PLATELET COUNT 314 TH/MM3 (150-450); RED BLOOD COUNT 2.82 MIL/MM3 (4.50-5.90); RED CELL DISTRIBUTION WIDTH 15.3 % (11.6-17.2)
[2016-12-09 06:05] LABS: HEMO FLAGS AUTO DIFF
[2016-12-09] MEDS ORDERED: ACETAMINOPHEN 1000 MG/100 ML VIAL IV ONE (07:28)
[2016-12-09] MEDS ORDERED: FAMOTIDINE 20 MG/2 ML VIAL ONE (07:28)
[2016-12-09] MEDS ORDERED: MIDAZOLAM HCL 2 MG/2 ML VIAL ONE (07:29)
[2016-12-09] MEDS ORDERED: HYDROmorphone HCL PF 2 MG/ML VIAL ONE (07:29)
[2016-12-09] MEDS ORDERED: fentaNYL CITRATE 250 MCG/5 ML AMP ONE ×2 (07:29→13:00)
[2016-12-09] MEDS ORDERED: THROMBIN (TOPICAL) 5,000 UNIT VIAL ONE (07:43)
[2016-12-09] MEDS ORDERED: GELFOAM SIZE 100 ONE (07:43)
[2016-12-09] MEDS ORDERED: BUPIVACAINE/EPINEPHRINE 0.5% PF 30 ML VIAL ONE (07:43)
[2016-12-09 07:48] LABS: BANDS 3 % (0-6); EOSINOPHILS 10 % (0-4); METAMYELOCYTES 1 % (0-1); MYELOCYTES 1 % (0-0); NEUTROPHIL # MANUAL DIFF 11.7 TH/MM3 (1.8-7.7); POLYS (SEG NEUTROPHILS) 73 % (16-70); WBC DIFF SAMPLE 100
[2016-12-09] MEDS: PROPOFOL 1000 MG/100 ML IV SCH ×2 (07:48→20:12)
[2016-12-09 07:51] LABS: PLATELET ESTIMATE SMEAR NORMAL (NORMAL); PLATELET MORPHOLOGY NORMAL (NORMAL); SCAN/DIFF FINAL DIFF MANUAL
[2016-12-09] MEDS: CHLORHEXIDINE 0.12% (ORAL KIT) 15 ML CUP MT SCH ×2 (08:00→20:00)
[2016-12-09] MEDS ORDERED: VANCOMYCIN HCL 1000 MG VIAL ONE (08:15)
[2016-12-09 08:26] LABS: ALT (GPT) 13 U/L (12-78); ANION GAP 4 MEQ/L (5-15); AST (GOT) 16 U/L (15-37); BICARBONATE 31.8 MEQ/L (21.0-32.0); BLOOD UREA NITROGEN 16 MG/DL (7-18); CHLORIDE 110 MEQ/L (98-107); GLOMERULAR FILTRATION RATE 150 ML/MIN (>89); MAGNESIUM 2.5 MG/DL (1.5-2.5); POTASSIUM 3.5 MEQ/L (3.5-5.1); SODIUM (NA) 146 MEQ/L (136-145)
[2016-12-09 08:30] LABS: ALKALINE PHOSPHATASE 49 U/L (45-117); TOTAL BILIRUBIN ADULT 0.5 MG/DL (0.2-1.0)
[2016-12-09] MEDS: METOPROLOL TARTRATE 25 MG TAB PO SCH ×2 (09:00→20:12)
[2016-12-09] MEDS: LISINOPRIL 5 MG TAB PO SCH (09:00)
[2016-12-09] MEDS: SODIUM CHLORIDE 0.9% FLUSH 5 ML FLUSH IVF SCH ×2 (09:00→20:13)
[2016-12-09] MEDS: DOCUSATE SODIUM 100 MG CAP PO SCH ×2 (09:00→20:12)
[2016-12-09] MEDS: TOBRAMYCIN SULFATE 0.3% OPTH OINT 3.5 GM TUBE RIGHT EYE SCH (09:00)
[2016-12-09] MEDS: VANCOMYCIN HCL 1000 MG VIAL ONE ×2 (10:20→12:20)
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
--- NOTE | 2016-12-09 13:35 | PD.OP ---
YASMINE Wells [id number] Operative Report Date of Surgery: Dec 09, 2016 Preoperative Diagnosis: Thoracic T11 and T12 vertebral body fractures; T12 retropulsion, kyphosis and laminar fracture; lumbar L3 vertebral body fracture Postoperative Diagnosis: Same Procedure: Thoracic at T12 transpedicular partial corpectomy; T10, T11, T12, L1 posterolateral fusion; T10-L1 pedicle screw fixation; T12 decompressive laminectomy; closed treatment of L3 vertebral body fracture; left iliac crest autograft harvest; microsurgical technique Anesthesia: Gen. endotracheal by Ramno Mcdonald Surgeon: Juan Womack M.D. Financial Project Manager(s): Kimberly Jefferson Operation and Findings: The procedure along with the risks and benefits involved were discussed with the patients and parents including the option of nonsurgical management. They requested that we proceed with surgery and informed consent was obtained. Following initiation of a general endotracheal anesthesia patient a Coronado catheter placed on the sequential compression devices and was log rolled on a Crhis table on chest rolls in the prone position and all pressure points adequately padded. The posterior thoracic lumbar and left iliac crest area was then shaved and prepped with alcohol along with ChloraPrep and sterilely draped with Ioban along with the usual sterile draping. Intraoperative fluoroscopy was used for level confirmation an incision in the midline made extending from that T 10 to the L1 levels after infiltrating the skin with 0.5% Marcaine with epinephrine solution. The incision was extended down through the fascia and then using the subperiosteal plane the muscle attachments spinous processes and lamina along with the facets were detached from the T10 to L1 levels bilaterally. Self-retaining retractor was used for exposure and the facet displaying and ligamentous disruption at the T12-L1 along with the T12 lamina fracture was noted. We had corrected the kyphosis to some extent with the positioning also. Further dissection was undertaken using microtechnique with microscope magnification. The left T12 lamina along with the facet the were resected with a drill bit and Kerrison along with the underlying ligamentum flavum and the pedicle drilled out to gain access to the ventral aspect of the retropulsed bone fragments through the posterolateral approach. Retropulsed fragments at the T12 level appeared to be more prominent than the imaging studies had suggested. Epidural venous stasis achieved with bipolar cautery along with Gelfoam and thrombin. No retraction or impingement of the thecal sac was undertaken for resection of the retropulsed the T12 vertebral body ventral fragments and a partial corpectomy undertaken using the pituitaries and curettes along with a right angle impactors to decompress the spinal canal ventrally. Subsequently pedicle screw fixation was undertaken using [place] spine screws with the entry point ejection of the transverse process and facet at the T10, T11 and L1 levels bilaterally. AP and lateral fluoroscopy guidance was used to and subsequently tap and screw placement bilaterally extending from T10 to the L1 levels which were then connected with the rods and locked in place with caps. I then decorticated the posterior lateral remnants of the laminae and facet lumbar transverse processes on the right side extending from T10 to L1 levels with a drill bit for posterolateral fusion. Incision overlying the left iliac crest was then and made after infiltrating the skin with 0.5% Marcaine with epinephrine physician extending down through the fascia and the musculature of the crest were detached. Cortical and cancellous bone harvested using gouges and hemostasis achieved with Gelfoam and thrombin. The fascia was then closed with 2-0 Vicryl interrupted sutures and then 3-0 Vicryl subcuticular sutures also placed in an interrupted fashion and final skin closure was with jasper. The iliac crest autograft bone along with the local autograft bone from the laminectomy and partial corpectomy as well as demineralized bone matrix was then packed overlying the decorticated the posterior lateral elements extending from the T10-L1 levels. A BARBIE 7 mm drain was also placed in the muscular layer which is then tunneled under the skin and secured at separate exit site and connected to a suction bulb. The area was copiously irrigated with vancomycin solution. AP and lateral fluoroscopy confirmed good placement of the construct as well as baptism of the spinal alignment. The muscle and fascia was then approximated using 2-0 Vicryl interrupted stitches and 3-0 Vicryl subcuticular interrupted stitches were also placed with final skin closure using jasper. Sterile dressings were then applied and he was then log roll supine position and extubated and taken to the surgical intensive care unit. There were no intraoperative complications and all sponge and needle count was correct at the end the procedure. Estimated blood loss about 500 cc. The L3 vertebral body fracture was felt best to be treated with the brace. Intraoperative neurologic monitoring was also undertaken which remained stable throughout the surgery. Juan Womack MD Dec 09, 2016 13:34
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
[2016-12-09] MEDS: LEVOFLOXACIN 750 MG PREMIX INJ 150 ML IV SCH (14:49)
[2016-12-09] MEDS ORDERED: ONDANSETRON HCL 4 MG/2 ML VIAL IV PUSH ONE (14:50)
[2016-12-09] MEDS ORDERED: PROPOFOL 200 MG/20 ML AMP IV ONE (14:50)
[2016-12-09] MEDS ORDERED: SODIUM CHLOR 0.9% 1000 ML INJ 1,000 ML IV ONE (14:50)
[2016-12-09 15:01] LABS: AUTOMATED NEUTROPHIL # 11.2 TH/MM3 (1.8-7.7); BASOPHIL # 0.1 TH/MM3 (0-0.2); BASOPHIL % 0.6 % (0.0-2.0); EOSINOPHIL # 0.9 TH/MM3 (0-0.4); EOSINOPHIL % 5.4 % (0.0-4.0); HEMATOCRIT 27.3 % (39.0-51.0); LYMPHOCYTE # 2.3 TH/MM3 (1.0-4.8); MEAN CELL VOLUME 86.3 FL (80.0-100.0); MEAN CORPUSCULAR HEMOGLOBIN 29.2 PG (27.0-34.0); MEAN CORPUSCULAR HGB CONC 33.8 % (32.0-36.0); MONO % 16.1 % (0.0-8.0); NEUT % 64.9 % (16.0-70.0); PLATELET COUNT 341 TH/MM3 (150-450); RED BLOOD COUNT 3.17 MIL/MM3 (4.50-5.90); RED CELL DISTRIBUTION WIDTH 15.4 % (11.6-17.2); WHITE BLOOD COUNT 17.3 TH/MM3 (4.0-11.0)
[2016-12-09 15:06] LABS: HEMO FLAGS AUTO DIFF
[2016-12-09 15:22] LABS: BICARBONATE 31.5 MEQ/L (21.0-32.0); POTASSIUM 3.3 MEQ/L (3.5-5.1)
[2016-12-09 16:18] LABS: SCAN/DIFF AUTO DIFF CONFIRMED
--- NOTE | 2016-12-09 17:16 | RADRPT ---
EXAM DATE/TIME: 12/09/2016 08:23 [facility] COMPARISON: No previous studies available for comparison. INDICATIONS : Fusion T10 to L1 with screw and aubrie placement. MEDICAL HISTORY : Acute compression deformities of T11 and T12 SURGICAL HISTORY : Splenectomy. ENCOUNTER: Subsequent ACUITY: 4 - 6 days PAIN SCORE: Non-responsive. LOCATION: Thoracic spine. FINDINGS: Limited study. Status post surgery with fusion of the lower thoracic spine. There is good alignment o n these 2 views. CONCLUSION: There is good alignment of the visualized thoracic spine on this post operative exam. Migel Hudson MD on December 09, 2016 at 17:13 Board Certified Radiologist. This report was verified electronically.
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
[2016-12-09] MEDS: MAGNESIUM HYDROXIDE SUSP 30 ML CUP PO SCH (20:12)
[2016-12-10] VITALS (18 sets, daily range): BP systolic 119–141; BP diastolic 56–74; PULSE 80–124; RESP 12–29; TEMP 98.6–100.3; O2SAT 95–100
[2016-12-10] MEDS: PANTOPRAZOLE SODIUM 40 MG VIAL IV SCH ×2 (00:12→23:53)
[2016-12-10] MEDS: INSULIN ASPART SUPPLEMENTAL SCALE SQ SCH ×2 (02:00→08:00)
[2016-12-10 03:22] LABS: AUTOMATED NEUTROPHIL # 11.3 TH/MM3 (1.8-7.7); BASOPHIL # 0.1 TH/MM3 (0-0.2); BASOPHIL % 0.5 % (0.0-2.0); EOSINOPHIL # 0.6 TH/MM3 (0-0.4); EOSINOPHIL % 3.7 % (0.0-4.0); HEMATOCRIT 26.4 % (39.0-51.0); LYMPH % 9.5 % (9.0-44.0); LYMPHOCYTE # 1.6 TH/MM3 (1.0-4.8); MEAN CELL VOLUME 86.6 FL (80.0-100.0); MEAN CORPUSCULAR HEMOGLOBIN 28.8 PG (27.0-34.0); MEAN CORPUSCULAR HGB CONC 33.2 % (32.0-36.0); MONO % 18.3 % (0.0-8.0); PLATELET COUNT 387 TH/MM3 (150-450); RED BLOOD COUNT 3.05 MIL/MM3 (4.50-5.90); RED CELL DISTRIBUTION WIDTH 15.1 % (11.6-17.2); WHITE BLOOD COUNT 16.7 TH/MM3 (4.0-11.0)
[2016-12-10 03:25] LABS: HEMO FLAGS AUTO DIFF
[2016-12-10 03:55] LABS: ALT (GPT) 15 U/L (12-78); ANION GAP 5 MEQ/L (5-15); AST (GOT) 26 U/L (15-37); BICARBONATE 33.3 MEQ/L (21.0-32.0); BLOOD UREA NITROGEN 16 MG/DL (7-18); CHLORIDE 109 MEQ/L (98-107); GLOMERULAR FILTRATION RATE 135 ML/MIN (>89); MAGNESIUM 2.4 MG/DL (1.5-2.5); POTASSIUM 4.1 MEQ/L (3.5-5.1); SODIUM (NA) 147 MEQ/L (136-145)
[2016-12-10 03:57] LABS: ALKALINE PHOSPHATASE 47 U/L (45-117); TOTAL BILIRUBIN ADULT 1.1 MG/DL (0.2-1.0)
[2016-12-10] MEDS: CHLORHEXIDINE GLUCONATE 2 % 1 PACK (2 CLOTHS) TOP SCH (04:00)
[2016-12-10] MEDS: SODIUM CHLOR 0.9% 1000 ML INJ 1,000 ML IV SCH (04:01)
[2016-12-10] MEDS: PROPOFOL 1000 MG/100 ML IV SCH (04:05)
[2016-12-10 04:17] LABS: BANDS 1 % (0-6); CORRECTED NUCLEATED RBC 1 /100 WBC (0-0); EOSINOPHILS 4 % (0-4); METAMYELOCYTES 3 % (0-1); NEUTROPHIL # MANUAL DIFF 12.9 TH/MM3 (1.8-7.7); POLYS (SEG NEUTROPHILS) 73 % (16-70); STOMATOCYTES 1+ (NORMAL); WBC DIFF SAMPLE 100
[2016-12-10 04:18] LABS: PLATELET ESTIMATE SMEAR HIGH (NORMAL); PLATELET MORPHOLOGY NORMAL (NORMAL); SCAN/DIFF FINAL DIFF MANUAL
[2016-12-10 04:58] LABS: BLOOD GAS BASE EXCESS 5.1 mmol/L (-2-2); BLOOD GAS CARBOXYHEMOGLOBIN 1.6 % (0-4); BLOOD GAS HCO3 30 mmol/L (22-26); BLOOD GAS METHEMOGLOBIN 0.8 % (0-2); BLOOD GAS O2 HGB SATURATION 96 % (90-100); BLOOD GAS OXYGEN CONTENT 12.7 Vol % (12.0-20.0); BLOOD GAS PCO2 51 mmHg (38-42); BLOOD GAS PO2 118 mmHg (61-120); BLOOD GAS TOTAL HGB 9.2 G/DL (12.0-16.0); CRITICAL VALUE YES; DRAW SITE RT RADIAL; FIO2 40 %; NUMBER OF ARTERIAL PUNCTURES 1; OXYGEN DEVICE VENTILATOR; STAT NO; TEMP CORR TO 98.6; ULNAR PULSE PRESENT; VENT SETTINGS PRVC/AC
[2016-12-10] MEDS: SODIUM PHOSPHATE INJ 30 MMOL in SODIUM CHLOR 0.9% 250 ML INJ 240 ML IV PRN (05:15)
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
[2016-12-10] MEDS: TOBRAMYCIN SULFATE 0.3% OPTH OINT 3.5 GM TUBE RIGHT EYE SCH (08:09)
[2016-12-10] MEDS: LISINOPRIL 5 MG TAB PO SCH (08:09)
[2016-12-10] MEDS: DOCUSATE SODIUM 100 MG CAP PO SCH ×2 (08:09→21:00)
[2016-12-10] MEDS: METOPROLOL TARTRATE 25 MG TAB PO SCH ×2 (08:09→21:00)
[2016-12-10] MEDS: CHLORHEXIDINE 0.12% (ORAL KIT) 15 ML CUP MT SCH (08:10)
[2016-12-10] MEDS: SODIUM CHLORIDE 0.9% FLUSH 5 ML FLUSH IVF SCH ×2 (08:10→21:00)
[2016-12-10] MEDS: LACTULOSE SYRUP 20 GM/30 ML CUP PO SCH (09:06)
[2016-12-10] MEDS ORDERED: BUMETANIDE INJ 1 MG/4 ML VIAL IV PUSH ONE (10:15)
[2016-12-10] MEDS: RESP: ALBUTEROL 2.5 MG/IPRATROPIUM 0.5 MG NEB (PRN) NEB (11:52)
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
[2016-12-10] MEDS: LEVOFLOXACIN 750 MG PREMIX INJ 150 ML IV SCH (13:30)
[2016-12-10] MEDS: MORPHINE SULFATE 4 MG/ML INJ IV PRN ×3 (14:11→21:47)
[2016-12-10] MEDS: RESP: ALBUTEROL 2.5 MG/IPRATROPIUM 0.5 MG NEB (SCH) NEB ×2 (16:19→20:06)
[2016-12-10] MEDS: MAGNESIUM HYDROXIDE SUSP 30 ML CUP PO SCH (21:00)
[2016-12-10] MEDS: ACETAMINOPHEN 1000 MG/100 ML VIAL IV PRN (23:20)
[2016-12-10] MEDS ORDERED: METOPROLOL TARTRATE 5 MG/5 ML VIAL IV PUSH ONE (23:45)
[2016-12-11] VITALS (13 sets, daily range): BP systolic 100–144; BP diastolic 61–73; PULSE 90–124; RESP 18–29; TEMP 98.8–99.8; O2SAT 23–99
[2016-12-11] MEDS: MORPHINE SULFATE 4 MG/ML INJ IV PRN ×4 (00:49→12:15)
[2016-12-11] MEDS: SODIUM CHLOR 0.9% 1000 ML INJ 1,000 ML IV SCH (03:15)
[2016-12-11] MEDS: CHLORHEXIDINE GLUCONATE 2 % 1 PACK (2 CLOTHS) TOP SCH (04:00)
--- NOTE | 2016-12-11 05:06 | RADRPT ---
EXAM DATE/TIME: 12/11/2016 04:08 [facility] COMPARISON: CHEST SINGLE AP, December 10, 2016, 5:38. INDICATIONS : Shortness of breath, possible pulmonary disease. MEDICAL HISTORY : Hypertension. SURGICAL HISTORY : Tonsillectomy. Splenectomy. ENCOUNTER: Subsequent ACUITY: 4 - 6 days PAIN SCORE: Non-responsive. LOCATION: Bilateral chest FINDINGS: There is hazy opacity noted laterally with increasing consolidation greatest in the left lower lobe. Left-sided chest tube is present. Endotracheal tube and NG tube removed. CONCLUSION: Slight increased hazy opacification of the lungs greatest in the left lower lobe. Saul Hirsch MD on December 11, 2016 at 5:04 Board Certified Radiologist. This report was verified electronically.
[2016-12-11] MEDS: ACETAMINOPHEN 1000 MG/100 ML VIAL IV PRN ×3 (05:27→20:44)
[2016-12-11 05:51] LABS: AUTOMATED NEUTROPHIL # 18.2 TH/MM3 (1.8-7.7); BASOPHIL # 0.1 TH/MM3 (0-0.2); BASOPHIL % 0.4 % (0.0-2.0); EOSINOPHIL # 0.4 TH/MM3 (0-0.4); EOSINOPHIL % 1.7 % (0.0-4.0); HEMATOCRIT 27.7 % (39.0-51.0); LYMPH % 6.7 % (9.0-44.0); LYMPHOCYTE # 1.6 TH/MM3 (1.0-4.8); MEAN CELL VOLUME 86.6 FL (80.0-100.0); MEAN CORPUSCULAR HEMOGLOBIN 28.8 PG (27.0-34.0); MEAN CORPUSCULAR HGB CONC 33.3 % (32.0-36.0); MONO % 16.5 % (0.0-8.0); NEUT % 74.7 % (16.0-70.0); PLATELET COUNT 539 TH/MM3 (150-450); RED CELL DISTRIBUTION WIDTH 15.1 % (11.6-17.2); WHITE BLOOD COUNT 24.3 TH/MM3 (4.0-11.0)
[2016-12-11 05:54] LABS: HEMO FLAGS AUTO DIFF
[2016-12-11 06:08] LABS: BICARBONATE 34.7 MEQ/L (21.0-32.0); POTASSIUM 3.8 MEQ/L (3.5-5.1)
[2016-12-11] MEDS: RESP: ALBUTEROL 2.5 MG/IPRATROPIUM 0.5 MG NEB (SCH) NEB ×4 (07:41→19:58)
[2016-12-11] MEDS: TOBRAMYCIN SULFATE 0.3% OPTH OINT 3.5 GM TUBE RIGHT EYE SCH (09:00)
[2016-12-11] MEDS: LISINOPRIL 5 MG TAB PO SCH (09:00)
[2016-12-11] MEDS: SODIUM CHLORIDE 0.9% FLUSH 5 ML FLUSH IVF SCH ×2 (09:00→20:12)
[2016-12-11] MEDS: RESP: ALBUTEROL 2.5 MG/IPRATROPIUM 0.5 MG NEB (PRN) NEB ×2 (09:15→13:30)
[2016-12-11] MEDS: METOPROLOL TARTRATE 25 MG TAB PO SCH ×2 (09:58→20:06)
[2016-12-11] MEDS: ACETAMINOPHEN/HYDROcodone 325 MG/5 MG TAB PO PRN (09:59)
[2016-12-11 10:00] LABS: BANDS 1 % (0-6); EOSINOPHILS 2 % (0-4); MYELOCYTES 1 % (0-0); NEUTROPHIL # MANUAL DIFF 17.5 TH/MM3 (1.8-7.7); POLYS (SEG NEUTROPHILS) 70 % (16-70); WBC DIFF SAMPLE 100
[2016-12-11 10:01] LABS: PLATELET ESTIMATE SMEAR HIGH (NORMAL); PLATELET MORPHOLOGY NORMAL (NORMAL); SCAN/DIFF FINAL DIFF MANUAL
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
[2016-12-11] MEDS: ENOXAPARIN SODIUM 40 MG/0.4 ML SYRINGE SQ SCH (11:00)
[2016-12-11] MEDS ORDERED: PROPOFOL 1000 MG/100 ML INJ 100 ML ONE (13:45)
[2016-12-11] MEDS ORDERED: ETOMIDATE 40 MG/20 ML VIAL ONE (13:46)
[2016-12-11] MEDS ORDERED: ROCURONIUM INJ 50 MG/5 ML VIAL ONE (13:59)
[2016-12-11] MEDS ORDERED: methylPREDNISolone SOD SUCC 40 MG/1 ML VIAL IV PUSH SCH (14:15)
[2016-12-11] MEDS ORDERED: METOPROLOL TARTRATE 5 MG/5 ML VIAL IV PUSH ONE (14:30)
--- NOTE | 2016-12-11 14:40 | RADRPT ---
EXAM DATE/TIME: 12/11/2016 14:27 [facility] COMPARISON: CHEST SINGLE AP, December 11, 2016, 4:08. INDICATIONS : Evaluate intubation MEDICAL HISTORY : Hypertension. SURGICAL HISTORY : Tonsillectomy. Splenectomy. ENCOUNTER: Subsequent ACUITY: 4 - 6 days PAIN SCORE: Non-responsive. LOCATION: Bilateral chest FINDINGS: Patient is now intubated. Endotracheal tube tip is at the suzanne and should be pulled back a couple c entimeters. Improved aeration/ventilation on both sides there is a trace left base atelectasis currently seen. Le ft chest tube remains in place. No perceptible pneumothorax. There is a new nasogastric tube coursing into the stomach. Unchanged left subclavian central venous c atheter with tip in the superior vena cava. CONCLUSION: 1. Endotracheal tube tip is at the suzanne. It should be pulled back a couple centimeters. 2. Trace left base atelectasis. 3. New nasogastric tube coursing into the stomach. 4. Left chest tube remains in place. No pneumothorax seen. Russell Bronson MD on December 11, 2016 at 14:36 Board Certified Radiologist. This report was verified electronically.
[2016-12-11] MEDS: methylPREDNISolone SOD SUCC 125 MG/2 ML VIAL IV PUSH SCH ×2 (14:54→20:45)
[2016-12-11] MEDS: LEVOFLOXACIN 750 MG PREMIX INJ 150 ML IV SCH (14:55)
[2016-12-11] MEDS ORDERED: MIDAZOLAM HCL 5 MG/ML VIAL (1 ML) ONE (15:03)
[2016-12-11 15:14] LABS: BLOOD GAS BASE EXCESS 6.2 mmol/L (-2-2); BLOOD GAS CARBOXYHEMOGLOBIN 1.3 % (0-4); BLOOD GAS HCO3 32 mmol/L (22-26); BLOOD GAS METHEMOGLOBIN 0.9 % (0-2); BLOOD GAS O2 HGB SATURATION 97 % (90-100); BLOOD GAS OXYGEN CONTENT 15.4 Vol % (12.0-20.0); BLOOD GAS PCO2 63 mmHg (38-42); BLOOD GAS PO2 179 mmHg (61-120); CRITICAL VALUE YES; TEMP CORR TO 98.6
[2016-12-11 15:15] LABS: DRAW SITE RT RADIAL; FIO2 100 %; NUMBER OF ARTERIAL PUNCTURES 1; OXYGEN DEVICE VENTILATOR; STAT NO; ULNAR PULSE PRESENT; VENT SETTINGS PRVC/AC
[2016-12-11] MEDS ORDERED: MIDAZOLAM 100 MG/NS 100 ML DRIP Premix IV SCH (15:15)
[2016-12-11] MEDS ORDERED: MIDAZOLAM HCL 2 MG/2 ML VIAL IV ONE (15:15)
[2016-12-11] MEDS: PROPOFOL 1000 MG/100 ML INJ 100 ML IV SCH ×3 (15:58→23:35)
[2016-12-11] MEDS: DOCUSATE SODIUM 100 MG CAP PO SCH ×2 (16:41→20:06)
[2016-12-11] MEDS: LACTULOSE SYRUP 20 GM/30 ML CUP PO SCH (16:41)
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
[2016-12-11] MEDS: MAGNESIUM HYDROXIDE SUSP 30 ML CUP PO SCH (20:06)
[2016-12-11] MEDS: CHLORHEXIDINE 0.12% (ORAL KIT) 15 ML CUP MT SCH (20:11)
[2016-12-11] MEDS: PANTOPRAZOLE SODIUM 40 MG VIAL IV SCH (23:36)
[2016-12-12] VITALS (16 sets, daily range): BP systolic 107–118; BP diastolic 55–68; PULSE 82–104; RESP 20; TEMP 98.9–99.5; O2SAT 94–100
[2016-12-12] MEDS: SODIUM CHLOR 0.9% 1000 ML INJ 1,000 ML IV SCH (03:15)
[2016-12-12] MEDS: CHLORHEXIDINE GLUCONATE 2 % 1 PACK (2 CLOTHS) TOP SCH (04:00)
[2016-12-12 05:19] LABS: BLOOD GAS BASE EXCESS 5.9 mmol/L (-2-2); BLOOD GAS CARBOXYHEMOGLOBIN 1.4 % (0-4); BLOOD GAS HCO3 30 mmol/L (22-26); BLOOD GAS METHEMOGLOBIN 0.7 % (0-2); BLOOD GAS O2 HGB SATURATION 95 % (90-100); BLOOD GAS OXYGEN CONTENT 14.5 Vol % (12.0-20.0); BLOOD GAS PCO2 41 mmHg (38-42); BLOOD GAS PO2 92 mmHg (61-120); BLOOD GAS TOTAL HGB 10.7 G/DL (12.0-16.0); CRITICAL VALUE NO; DRAW SITE RT RADIAL; FIO2 50 %; NUMBER OF ARTERIAL PUNCTURES 1; OXYGEN DEVICE VENTILATOR; STAT NO; TEMP CORR TO 98.6; ULNAR PULSE PRESENT; VENT SETTINGS PRVC20/550/0.9/+10
[2016-12-12] MEDS: PROPOFOL 1000 MG/100 ML INJ 100 ML IV SCH ×6 (05:27→23:07)
[2016-12-12] MEDS: methylPREDNISolone SOD SUCC 125 MG/2 ML VIAL IV PUSH SCH ×3 (05:27→21:15)
[2016-12-12 05:35] LABS: AUTOMATED NEUTROPHIL # 18.7 TH/MM3 (1.8-7.7); BASOPHIL # 0.1 TH/MM3 (0-0.2); BASOPHIL % 0.6 % (0.0-2.0); LYMPH % 5.4 % (9.0-44.0); LYMPHOCYTE # 1.2 TH/MM3 (1.0-4.8); MEAN CELL VOLUME 87.3 FL (80.0-100.0); MEAN CORPUSCULAR HGB CONC 33.2 % (32.0-36.0); PLATELET COUNT 623 TH/MM3 (150-450); RED BLOOD COUNT 3.21 MIL/MM3 (4.50-5.90); RED CELL DISTRIBUTION WIDTH 15.6 % (11.6-17.2); WHITE BLOOD COUNT 21.5 TH/MM3 (4.0-11.0)
[2016-12-12 05:39] LABS: HEMO FLAGS AUTO DIFF
[2016-12-12 05:58] LABS: MAGNESIUM 2.6 MG/DL (1.5-2.5); POTASSIUM 3.8 MEQ/L (3.5-5.1)
--- NOTE | 2016-12-12 06:42 | RADRPT ---
EXAM DATE/TIME: 12/12/2016 05:13 [facility] COMPARISON: CHEST SINGLE AP, December 11, 2016, 14:27. INDICATIONS : Shortness of breath, possible pulmonary disease. MEDICAL HISTORY : Hypertension. SURGICAL HISTORY : Tonsillectomy. Splenectomy. ENCOUNTER: Subsequent ACUITY: 1 week PAIN SCORE: Non-responsive. LOCATION: Bilateral chest FINDINGS: A single view of the chest demonstrates endotracheal tube tip in satisfactory position. NG enters sto mach. Subsegmental airspace disease at the lung bases. Multiple left-sided rib fractures. No pneumoth orax. Left central line in superior vena cava. CONCLUSION: 1. Left chest tube without significant pneumothorax. Support apparatus in satisfactory position. Mini mal basilar airspace disease. Homer Ortiz MD on December 12, 2016 at 6:40 Board Certified Radiologist. This report was verified electronically.
[2016-12-12 07:57] LABS: BANDS 14 % (0-6); BASOPHILS 1 % (0-2); CORRECTED NUCLEATED RBC 1 /100 WBC (0-0); POLYS (SEG NEUTROPHILS) 79 % (16-70); WBC DIFF SAMPLE 100
[2016-12-12 07:58] LABS: PLATELET ESTIMATE SMEAR HIGH (NORMAL)
[2016-12-12 07:59] LABS: PLATELET MORPHOLOGY NORMAL (NORMAL)
[2016-12-12 08:00] LABS: SCAN/DIFF FINAL DIFF MANUAL
[2016-12-12] MEDS: CHLORHEXIDINE 0.12% (ORAL KIT) 15 ML CUP MT SCH ×2 (08:00→20:30)
[2016-12-12] MEDS: RESP: ALBUTEROL 2.5 MG/IPRATROPIUM 0.5 MG NEB (SCH) NEB ×4 (08:00→19:32)
[2016-12-12] MEDS ORDERED: BISACODYL 10 MG SUPP RECTAL ONE (08:15)
[2016-12-12] MEDS: DOCUSATE SODIUM 100 MG CAP PO SCH ×2 (08:51→20:29)
[2016-12-12] MEDS: SODIUM CHLORIDE 0.9% FLUSH 5 ML FLUSH IVF SCH ×2 (08:51→20:30)
[2016-12-12] MEDS: LACTULOSE SYRUP 20 GM/30 ML CUP PO SCH (08:51)
[2016-12-12] MEDS: METOPROLOL TARTRATE 25 MG TAB PO SCH ×2 (08:51→20:29)
[2016-12-12] MEDS: LISINOPRIL 5 MG TAB PO SCH (08:52)
[2016-12-12] MEDS: TOBRAMYCIN SULFATE 0.3% OPTH OINT 3.5 GM TUBE RIGHT EYE SCH (08:52)
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
[2016-12-12] MEDS: ENOXAPARIN SODIUM 40 MG/0.4 ML SYRINGE SQ SCH (11:21)
[2016-12-12] MEDS: MORPHINE SULFATE 4 MG/ML INJ IV PRN ×3 (12:15→21:15)
[2016-12-12] MEDS: LEVOFLOXACIN 750 MG PREMIX INJ 150 ML IV SCH (13:52)
--- NOTE | 2016-12-12 15:56 | EC ---
Study Study Date:12/12/2016 STUDY CONCLUSIONS SUMMARY LEFT VENTRICLE: The cavity size was normal. Wall thickness was normal. Systolic function was normal. The estimated ejection fraction was 55%. Wall motion was normal; there were no regional wall motion abnormalities. If LV function is below 40, please consider prescribing an ACEI or ARB or document rationale for non-use. PROCEDURE DATA STUDY STATUS: Elective. Procedure: Transthoracic echocardiography. Image quality was good. Scanning was performed from the parasternal, apical, and subcostal acoustic windows. Study completion: The patient tolerated the procedure well. Transthoracic echocardiography. M-mode, complete 2D, complete spectral Doppler, and color Doppler. Patient status: Inpatient. CARDIAC ANATOMY LEFT VENTRICLE: The cavity size was normal. Wall thickness was normal. Systolic function was normal. The estimated ejection fraction was 55%. Wall motion was normal; there were no regional wall motion abnormalities. AORTIC VALVE: Trileaflet; normal thickness leaflets. Doppler: Transvalvular velocity was within the normal range. There was no stenosis. No regurgitation. AORTA: Aortic root: The aortic root was normal in size. MITRAL VALVE: Structurally normal valve. Doppler: Transvalvular velocity was within the normal range. There was no evidence for stenosis. No regurgitation. Peak gradient: 2mm Hg (D). LEFT ATRIUM: The atrium was normal in size. RIGHT VENTRICLE: The cavity size was normal. Wall thickness was normal. PULMONIC VALVE: Doppler: Transvalvular velocity was within the normal range. There was no evidence for stenosis. No regurgitation. TRICUSPID VALVE: Structurally normal valve. Doppler: Transvalvular velocity was within the normal range. Trace regurgitation. PULMONARY ARTERY: The main pulmonary artery was normal-sized. Systolic pressure was within the normal range. RIGHT ATRIUM: The atrium was normal in size. PERICARDIUM: There wasa smallpericardial effusion. SYSTEMIC VEINS: Inferior vena cava: The vessel was normal in size. BASIC MEASUREMENTS ADULT Normal Left ventricle LV internal dimension, ED, chordal level, *41.5 mm 43-52 PLAX LV internal dimension, ES, chordal level, 32.2 mm 23-38 PLAX Fractional shortening, chordal level, PLAX *22 % >29 LV posterior wall thickness, ED 7.58 mm IVS/LVPW ratio, ED 1.16 <1.3 Ventricular septum Septal thickness, ED 8.77 mm Aortic valve Leaflet separation 20 mm 15-26 Left atrium Anterior-posterior dimension 23 mm Right ventricle RV internal dimension, ED, PLAX 20.9 mm 19-38 BASIC MEASUREMENTS ADULT Normal Aortic valve Leaflet separation 20 mm 15-26 Aorta Root diameter, ED 35 mm 20-37 DOPPLER MEASUREMENTS ADULT Normal Main pulmonary artery Pressure, S 23 mm Hg =30 Aortic valve Peak velocity, S 154 cm/s Mitral valve Peak E-wave velocity 77.5 cm/s Peak A-wave velocity 92.8 cm/s Peak gradient, D 2 mm Hg Peak E/A ratio 0.8 Tricuspid valve Regurgitant peak velocity 140 cm/s Peak RV-RA gradient, S 8 mm Hg Maximal regurgitant velocity 140 cm/s Systemic veins Estimated CVP 10 mm Hg Right ventricle RV pressure, S 23 mm Hg <30 LEGEND: Mean values are shown as u=mean value. Asterisk (*) don values outside specified normal range. Prepared and signed by Derrick Caballero [id number]
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
[2016-12-12] MEDS: MAGNESIUM HYDROXIDE SUSP 30 ML CUP PO SCH (20:30)
[2016-12-12] MEDS: PANTOPRAZOLE SODIUM 40 MG VIAL IV SCH (23:07)
[2016-12-13] VITALS (18 sets, daily range): BP systolic 93–127; BP diastolic 55–65; PULSE 59–79; RESP 20–21; TEMP 97.9–99.6; O2SAT 95–99
[2016-12-13] MEDS: CHLORHEXIDINE GLUCONATE 2 % 1 PACK (2 CLOTHS) TOP SCH (03:59)
[2016-12-13] MEDS: PROPOFOL 1000 MG/100 ML INJ 100 ML IV SCH ×2 (04:23→06:38)
[2016-12-13] MEDS: SODIUM CHLOR 0.9% 1000 ML INJ 1,000 ML IV SCH ×2 (04:35→16:02)
[2016-12-13 04:59] LABS: HEMATOCRIT 25.3 % (39.0-51.0); MEAN CORPUSCULAR HGB CONC 33.4 % (32.0-36.0); PLATELET COUNT 735 TH/MM3 (150-450); RED BLOOD COUNT 2.91 MIL/MM3 (4.50-5.90); RED CELL DISTRIBUTION WIDTH 15.5 % (11.6-17.2); WHITE BLOOD COUNT 19.2 TH/MM3 (4.0-11.0)
[2016-12-13 05:04] LABS: HEMO FLAGS AUTO DIFF
[2016-12-13] MEDS: methylPREDNISolone SOD SUCC 125 MG/2 ML VIAL IV PUSH SCH ×3 (05:10→22:05)
[2016-12-13 05:24] LABS: BICARBONATE 30.5 MEQ/L (21.0-32.0); POTASSIUM 3.8 MEQ/L (3.5-5.1)
[2016-12-13] MEDS: MORPHINE SULFATE 4 MG/ML INJ IV PRN ×2 (06:00→23:58)
[2016-12-13 06:51] LABS: BANDS 8 % (0-6); METAMYELOCYTES 2 % (0-1); MYELOCYTES 1 % (0-0); NEUTROPHIL # MANUAL DIFF 15.7 TH/MM3 (1.8-7.7); POLYS (SEG NEUTROPHILS) 71 % (16-70); WBC DIFF SAMPLE 100
[2016-12-13 06:53] LABS: PLATELET ESTIMATE SMEAR HIGH (NORMAL); PLATELET MORPHOLOGY NORMAL (NORMAL); POLYCHROMASIA 3.1 % (0.0-1.9); SCAN/DIFF FINAL DIFF MANUAL
[2016-12-13] MEDS: RESP: ALBUTEROL 2.5 MG/IPRATROPIUM 0.5 MG NEB (SCH) NEB ×4 (08:25→20:10)
[2016-12-13] MEDS: METOPROLOL TARTRATE 25 MG TAB PO SCH ×2 (08:45→20:41)
[2016-12-13] MEDS: LACTULOSE SYRUP 20 GM/30 ML CUP PO SCH (08:45)
[2016-12-13] MEDS: SODIUM CHLORIDE 0.9% FLUSH 5 ML FLUSH IVF SCH ×2 (08:45→20:41)
[2016-12-13] MEDS: TOBRAMYCIN SULFATE 0.3% OPTH OINT 3.5 GM TUBE RIGHT EYE SCH (08:45)
[2016-12-13] MEDS: DOCUSATE SODIUM 100 MG CAP PO SCH ×2 (08:45→20:41)
[2016-12-13] MEDS: CHLORHEXIDINE 0.12% (ORAL KIT) 15 ML CUP MT SCH ×2 (08:45→20:00)
[2016-12-13] MEDS: LISINOPRIL 5 MG TAB PO SCH (08:45)
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
[2016-12-13] MEDS: DEXMEDETOMIDINE INJ 50 ML IV SCH ×4 (09:50→20:41)
[2016-12-13] MEDS: ENOXAPARIN SODIUM 40 MG/0.4 ML SYRINGE SQ SCH (10:43)
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
[2016-12-13] MEDS: LEVOFLOXACIN 750 MG PREMIX INJ 150 ML IV SCH (14:41)
[2016-12-13] MEDS: ALPRAZolam 0.5 MG TAB PO PRN ×2 (16:02→23:57)
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
[2016-12-13] MEDS: MAGNESIUM HYDROXIDE SUSP 30 ML CUP PO SCH (22:05)
[2016-12-13] MEDS: PANTOPRAZOLE SODIUM 40 MG VIAL IV SCH (23:58)
[2016-12-14] VITALS (18 sets, daily range): BP systolic 112–145; BP diastolic 56–80; PULSE 50–77; RESP 18–21; TEMP 97.6–98.6; O2SAT 93–100
[2016-12-14] MEDS: DEXMEDETOMIDINE INJ 50 ML IV SCH ×5 (02:55→17:30)
[2016-12-14] MEDS: CHLORHEXIDINE GLUCONATE 2 % 1 PACK (2 CLOTHS) TOP SCH (04:00)
--- NOTE | 2016-12-14 04:29 | RADRPT ---
EXAM DATE/TIME: 12/14/2016 03:52 [facility] COMPARISON: CHEST SINGLE AP, December 12, 2016, 5:13. INDICATIONS : Shortness of breath. MEDICAL HISTORY : Hypertension. SURGICAL HISTORY : Tonsillectomy. Splenectomy. ENCOUNTER: Subsequent ACUITY: 1 week PAIN SCORE: Non-responsive. LOCATION: Bilateral chest FINDINGS: Endotracheal tube tip in cephalad position. NG enters stomach. A central line in superior vena cava. Mild basilar airspace disease. No significant change since December 12. Spine fixation lower thoracic region with skin jasper noted. CONCLUSION: 1. Support apparatus unchanged. Mild basilar airspace disease. Homer Ortiz MD on December 14, 2016 at 4:27 Board Certified Radiologist. This report was verified electronically.
[2016-12-14] MEDS: ACETAMINOPHEN 1000 MG/100 ML VIAL IV PRN (05:17)
[2016-12-14] MEDS: methylPREDNISolone SOD SUCC 125 MG/2 ML VIAL IV PUSH SCH ×3 (05:18→20:54)
[2016-12-14] MEDS: MORPHINE SULFATE 4 MG/ML INJ IV PRN ×5 (05:18→22:51)
[2016-12-14 05:30] LABS: BLOOD GAS BASE EXCESS 2.5 mmol/L (-2-2); BLOOD GAS CARBOXYHEMOGLOBIN 1.4 % (0-4); BLOOD GAS HCO3 26 mmol/L (22-26); BLOOD GAS METHEMOGLOBIN 0.9 % (0-2); BLOOD GAS O2 HGB SATURATION 92 % (90-100); BLOOD GAS OXYGEN CONTENT 12.5 Vol % (12.0-20.0); BLOOD GAS PCO2 33 mmHg (38-42); BLOOD GAS PO2 72 mmHg (61-120); BLOOD GAS TOTAL HGB 9.6 G/DL (12.0-16.0); CRITICAL VALUE NO; OXYGEN DEVICE VENTILATOR; TEMP CORR TO 98.6
[2016-12-14 05:31] LABS: FIO2 40 %; VENT SETTINGS PRVC/AC
[2016-12-14 05:32] LABS: DRAW SITE RT RADIAL; NUMBER OF ARTERIAL PUNCTURES 1; STAT NO; ULNAR PULSE PRESENT
[2016-12-14 05:57] LABS: AUTOMATED NEUTROPHIL # 14.1 TH/MM3 (1.8-7.7); BASOPHIL # 0.2 TH/MM3 (0-0.2); EOSINOPHIL # 0.2 TH/MM3 (0-0.4); EOSINOPHIL % 0.8 % (0.0-4.0); LYMPH % 17.1 % (9.0-44.0); LYMPHOCYTE # 3.6 TH/MM3 (1.0-4.8); MEAN CORPUSCULAR HEMOGLOBIN 28.4 PG (27.0-34.0); MEAN CORPUSCULAR HGB CONC 32.7 % (32.0-36.0); MONO % 13.6 % (0.0-8.0); NEUT % 67.5 % (16.0-70.0); PLATELET COUNT 792 TH/MM3 (150-450); RED BLOOD COUNT 3.22 MIL/MM3 (4.50-5.90); RED CELL DISTRIBUTION WIDTH 15.3 % (11.6-17.2); WHITE BLOOD COUNT 20.9 TH/MM3 (4.0-11.0)
[2016-12-14 06:04] LABS: HEMO FLAGS AUTO DIFF
[2016-12-14 06:20] LABS: BICARBONATE 26.9 MEQ/L (21.0-32.0); POTASSIUM 3.7 MEQ/L (3.5-5.1)
[2016-12-14] MEDS: RESP: ALBUTEROL 2.5 MG/IPRATROPIUM 0.5 MG NEB (SCH) NEB ×2 (07:26→11:12)
[2016-12-14] MEDS: CHLORHEXIDINE 0.12% (ORAL KIT) 15 ML CUP MT SCH ×2 (08:13→20:00)
[2016-12-14] MEDS: DOCUSATE SODIUM 100 MG CAP PO SCH ×2 (08:14→20:08)
[2016-12-14] MEDS: LACTULOSE SYRUP 20 GM/30 ML CUP PO SCH (08:14)
[2016-12-14] MEDS: SODIUM CHLOR 0.9% 1000 ML INJ 1,000 ML IV SCH (08:14)
[2016-12-14] MEDS: SODIUM CHLORIDE 0.9% FLUSH 5 ML FLUSH IVF SCH ×2 (08:14→20:52)
[2016-12-14] MEDS: LISINOPRIL 5 MG TAB PO SCH (08:15)
[2016-12-14] MEDS: METOPROLOL TARTRATE 25 MG TAB PO SCH ×2 (08:16→20:51)
[2016-12-14 08:21] LABS: ACANTHOCYTES OCC (NORMAL); PLATELET ESTIMATE SMEAR HIGH (NORMAL)
[2016-12-14 08:22] LABS: PLATELET MORPHOLOGY ENLARGED (NORMAL); SCAN/DIFF AUTO DIFF CONFIRMED
[2016-12-14] MEDS: TOBRAMYCIN SULFATE 0.3% OPTH OINT 3.5 GM TUBE RIGHT EYE SCH (08:32)
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
[2016-12-14] MEDS ORDERED: FUROSEMIDE 20 MG/2 ML VIAL IV PUSH ONE (09:15)
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
[2016-12-14] MEDS: QUEtiapine FUMARATE 25 MG TAB PO SCH ×2 (09:24→20:08)
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
[2016-12-14] MEDS: ENOXAPARIN SODIUM 40 MG/0.4 ML SYRINGE SQ SCH (11:10)
[2016-12-14] MEDS ORDERED: QUEtiapine FUMARATE 25 MG TAB PO SCH (12:00)
[2016-12-14] MEDS: ALPRAZolam 0.5 MG TAB PO PRN ×2 (12:13→20:56)
[2016-12-14] MEDS ORDERED: RESP: RACEPINEPHRINE 2.25% 0.5 ML NEB NEB ONE (14:30)
[2016-12-14] MEDS ORDERED: RESP: RACEPINEPHRINE 2.25% 0.5 ML NEB ONE (14:32)
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
[2016-12-14] MEDS: RESP: ALBUTEROL 2.5 MG/IPRATROPIUM 0.5 MG NEB (PRN) NEB (16:08)
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
[2016-12-14] MEDS: DEXMEDETOMIDINE INJ 1,000 MCG in SODIUM CHLOR 0.9% 250 ML INJ 250 ML IV SCH (20:06)
[2016-12-14] MEDS: ACETAMINOPHEN/HYDROcodone 325 MG/5 MG TAB PO PRN (20:28)
[2016-12-14] MEDS: MAGNESIUM HYDROXIDE SUSP 30 ML CUP PO SCH ×2 (20:52→21:00)
[2016-12-14] MEDS ORDERED: QUEtiapine FUMARATE 100 MG TAB PO SCH (21:00)
[2016-12-15] VITALS (17 sets, daily range): BP systolic 116–134; BP diastolic 55–79; PULSE 51–79; RESP 18–28; TEMP 98.5–98.9; O2SAT 94–100
[2016-12-15] MEDS: MORPHINE SULFATE 4 MG/ML INJ IV PRN (02:24)
[2016-12-15] MEDS: PANTOPRAZOLE SODIUM 40 MG VIAL IV SCH (02:24)
[2016-12-15] MEDS: ACETAMINOPHEN/HYDROcodone 325 MG/5 MG TAB PO PRN ×2 (02:43→08:30)
--- NOTE | 2016-12-15 03:23 | RADRPT ---
EXAM DATE/TIME: 12/15/2016 02:31 [facility] COMPARISON: CHEST SINGLE AP, December 14, 2016, 3:52. INDICATIONS : Short of breath. MEDICAL HISTORY : Hypertension. SURGICAL HISTORY : Tonsillectomy. Splenectomy. ENCOUNTER: Subsequent ACUITY: 2 weeks PAIN SCORE: Non-responsive. LOCATION: Bilateral chest FINDINGS: Endotracheal tube tip in satisfactory position. NG entering stomach. Left central line tip in superio r vena cava. Bilateral mostly basilar airspace disease. No pneumothorax. Previous spinal fixation. CONCLUSION: 1. Support apparatus unchanged since December 14. Bilateral mostly dependent airspace disease not signifi cantly changed. Multiple left-sided rib fractures. Homer Ortiz MD on December 15, 2016 at 3:19 Board Certified Radiologist. This report was verified electronically.
[2016-12-15] MEDS: CHLORHEXIDINE GLUCONATE 2 % 1 PACK (2 CLOTHS) TOP SCH (04:00)
[2016-12-15 05:22] LABS: AUTOMATED NEUTROPHIL # 15.9 TH/MM3 (1.8-7.7); BASOPHIL # 0.1 TH/MM3 (0-0.2); BASOPHIL % 0.4 % (0.0-2.0); EOSINOPHIL % 0.1 % (0.0-4.0); HEMATOCRIT 30.8 % (39.0-51.0); LYMPHOCYTE # 2.2 TH/MM3 (1.0-4.8); MEAN CELL VOLUME 86.6 FL (80.0-100.0); MEAN CORPUSCULAR HEMOGLOBIN 28.7 PG (27.0-34.0); MEAN CORPUSCULAR HGB CONC 33.1 % (32.0-36.0); MONO % 9.8 % (0.0-8.0); NEUT % 78.7 % (16.0-70.0); PLATELET COUNT 772 TH/MM3 (150-450); RED BLOOD COUNT 3.55 MIL/MM3 (4.50-5.90); RED CELL DISTRIBUTION WIDTH 15.2 % (11.6-17.2); WHITE BLOOD COUNT 20.3 TH/MM3 (4.0-11.0)
[2016-12-15 05:33] LABS: HEMO FLAGS AUTO DIFF
[2016-12-15 05:47] LABS: ALKALINE PHOSPHATASE 142 U/L (45-117); ALT (GPT) 33 U/L (12-78); ANION GAP 7 MEQ/L (5-15); AST (GOT) 28 U/L (15-37); BICARBONATE 27.2 MEQ/L (21.0-32.0); BLOOD UREA NITROGEN 27 MG/DL (7-18); CHLORIDE 103 MEQ/L (98-107); GLOMERULAR FILTRATION RATE 124 ML/MIN (>89); MAGNESIUM 2.7 MG/DL (1.5-2.5); POTASSIUM 4.4 MEQ/L (3.5-5.1); SODIUM (NA) 137 MEQ/L (136-145); TOTAL BILIRUBIN ADULT 1.4 MG/DL (0.2-1.0)
[2016-12-15] MEDS: methylPREDNISolone SOD SUCC 125 MG/2 ML VIAL IV PUSH SCH ×3 (05:48→22:58)
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
[2016-12-15 07:49] LABS: PLATELET ESTIMATE SMEAR HIGH (NORMAL); PLATELET MORPHOLOGY NORMAL (NORMAL); SCAN/DIFF AUTO DIFF CONFIRMED
[2016-12-15] MEDS: CHLORHEXIDINE 0.12% (ORAL KIT) 15 ML CUP MT SCH ×2 (08:00→20:00)
[2016-12-15] MEDS: SODIUM CHLORIDE 0.9% FLUSH 5 ML FLUSH IVF SCH ×2 (08:29→21:00)
[2016-12-15] MEDS: QUEtiapine FUMARATE 25 MG TAB PO SCH ×2 (08:29→21:00)
[2016-12-15] MEDS: DOCUSATE SODIUM 100 MG CAP PO SCH ×2 (08:29→21:00)
[2016-12-15] MEDS: LACTULOSE SYRUP 20 GM/30 ML CUP PO SCH (08:29)
[2016-12-15] MEDS: TOBRAMYCIN SULFATE 0.3% OPTH OINT 3.5 GM TUBE RIGHT EYE SCH (08:30)
[2016-12-15] MEDS: ALPRAZolam 0.5 MG TAB PO PRN ×2 (08:30→22:57)
[2016-12-15] MEDS: METOPROLOL TARTRATE 25 MG TAB PO SCH ×2 (09:00→22:57)
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
[2016-12-15] MEDS ORDERED: RESP: RACEPINEPHRINE 2.25% 0.5 ML NEB NEB PRN (09:30)
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
[2016-12-15] MEDS: ENOXAPARIN SODIUM 40 MG/0.4 ML SYRINGE SQ SCH (11:36)
[2016-12-15] MEDS: DEXMEDETOMIDINE INJ 1,000 MCG in SODIUM CHLOR 0.9% 250 ML INJ 250 ML IV SCH (12:36)
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
[2016-12-15] MEDS ORDERED: MORPHINE SULFATE 8 MG/ML INJ ONE (14:31)
[2016-12-15] MEDS: ONDANSETRON HCL 4 MG/2 ML VIAL IV PRN ×2 (14:47→21:36)
[2016-12-15] MEDS: MORPHINE SULFATE 4 MG/ML INJ IV PUSH PRN ×2 (17:20→19:28)
[2016-12-16] VITALS (14 sets, daily range): BP systolic 98–133; BP diastolic 58–73; PULSE 79–119; RESP 17–25; TEMP 98.3–98.7; O2SAT 94–99
[2016-12-16] MEDS: PANTOPRAZOLE SODIUM 40 MG VIAL IV SCH (01:34)
[2016-12-16] MEDS: CHLORHEXIDINE GLUCONATE 2 % 1 PACK (2 CLOTHS) TOP SCH ×3 (04:00→21:44)
[2016-12-16] MEDS: methylPREDNISolone SOD SUCC 125 MG/2 ML VIAL IV PUSH SCH ×3 (05:59→21:49)
[2016-12-16 06:56] LABS: AUTOMATED NEUTROPHIL # 22.2 TH/MM3 (1.8-7.7); BASOPHIL # 0.1 TH/MM3 (0-0.2); BASOPHIL % 0.3 % (0.0-2.0); EOSINOPHIL % 0.1 % (0.0-4.0); HEMATOCRIT 34.6 % (39.0-51.0); LYMPH % 8.9 % (9.0-44.0); LYMPHOCYTE # 2.4 TH/MM3 (1.0-4.8); MEAN CELL VOLUME 87.4 FL (80.0-100.0); MEAN CORPUSCULAR HEMOGLOBIN 28.6 PG (27.0-34.0); MEAN CORPUSCULAR HGB CONC 32.7 % (32.0-36.0); MONO % 9.1 % (0.0-8.0); NEUT % 81.6 % (16.0-70.0); PLATELET COUNT 763 TH/MM3 (150-450); RED BLOOD COUNT 3.96 MIL/MM3 (4.50-5.90); RED CELL DISTRIBUTION WIDTH 15.5 % (11.6-17.2); WHITE BLOOD COUNT 27.1 TH/MM3 (4.0-11.0)
[2016-12-16 07:17] LABS: ANION GAP 8 MEQ/L (5-15); BICARBONATE 27.8 MEQ/L (21.0-32.0); BLOOD UREA NITROGEN 23 MG/DL (7-18); CHLORIDE 98 MEQ/L (98-107); GLOMERULAR FILTRATION RATE 124 ML/MIN (>89); MAGNESIUM 2.4 MG/DL (1.5-2.5); POTASSIUM 3.9 MEQ/L (3.5-5.1); SODIUM (NA) 134 MEQ/L (136-145)
[2016-12-16 07:20] LABS: ALKALINE PHOSPHATASE 217 U/L (45-117); ALT (GPT) 52 U/L (12-78); AST (GOT) 46 U/L (15-37); TOTAL BILIRUBIN ADULT 1.7 MG/DL (0.2-1.0)
[2016-12-16 07:28] LABS: HEMO FLAGS AUTO DIFF
[2016-12-16 07:59] LABS: BANDS 1 % (0-6); CORRECTED NUCLEATED RBC 1 /100 WBC (0-0); HOWELL-JOLLY BODIES PRESENT (NONE SEEN); METAMYELOCYTES 1 % (0-1); MYELOCYTES 3 % (0-0); NEUTROPHIL # MANUAL DIFF 24.7 TH/MM3 (1.8-7.7); PLATELET ESTIMATE SMEAR HIGH (NORMAL); PLATELET MORPHOLOGY NORMAL (NORMAL); POLYS (SEG NEUTROPHILS) 86 % (16-70); SCAN/DIFF FINAL DIFF MANUAL; WBC DIFF SAMPLE 100
[2016-12-16] MEDS: CHLORHEXIDINE 0.12% (ORAL KIT) 15 ML CUP MT SCH ×2 (08:00→20:00)
[2016-12-16] MEDS: LACTULOSE SYRUP 20 GM/30 ML CUP PO SCH (09:00)
[2016-12-16] MEDS: TOBRAMYCIN SULFATE 0.3% OPTH OINT 3.5 GM TUBE RIGHT EYE SCH (09:00)
[2016-12-16] MEDS: SODIUM CHLORIDE 0.9% FLUSH 5 ML FLUSH IVF SCH ×2 (09:00→21:00)
[2016-12-16] MEDS: DOCUSATE SODIUM 100 MG CAP PO SCH ×2 (09:00→21:49)
[2016-12-16] MEDS ORDERED: PROMETHAZINE INJ 25 MG/ML VIAL IM PRN (09:00)
[2016-12-16] MEDS: ONDANSETRON HCL 4 MG/2 ML VIAL IV PRN ×2 (09:26→22:04)
[2016-12-16] MEDS: METOPROLOL TARTRATE 25 MG TAB PO SCH ×2 (09:26→21:49)
[2016-12-16] MEDS: QUEtiapine FUMARATE 25 MG TAB PO SCH ×2 (09:27→21:49)
[2016-12-16] MEDS: fentaNYL 25 MCG/HR PATCH TD SCH (09:27)
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
[2016-12-16] MEDS: ACETAMINOPHEN/HYDROcodone 325 MG/5 MG TAB PO PRN (12:37)
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
[2016-12-16] MEDS: ENOXAPARIN SODIUM 40 MG/0.4 ML SYRINGE SQ SCH (13:15)
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
--- NOTE | 2016-12-16 17:51 | HHI.PR ---
Subjective Subjective Comments Patient extubated and is verbalizing appropriately. Denies any shortness of breath. Allergies: Coded Allergies: No Known Allergies (Unverified , 12/13/16) Review of Systems All other ROS: ROS reviewed as documented in chart Exam I&O / VS 12/15/16 12/15/16 12/16/16 15:00 23:00 07:00 Intake Total 231 ml Output Total 1200 ml 1300 ml 1200 ml Balance -969 ml -1300 ml -1200 ml IV Total 231 ml Output Urine Total 1200 ml 1300 ml 1200 ml # Bowel Movements 0 0 0 Vital Signs Date Time Temp Pulse Resp B/P Pulse Ox O2 Delivery O2 Flow Rate FiO2 12/16/16 16:00 83 12/16/16 16:00 98.4 83 20 126/73 98 12/16/16 14:00 103 12/16/16 12:00 108 12/16/16 12:00 98.4 103 20 98/58 98 12/16/16 11:04 95 21 12/16/16 10:00 119 12/16/16 08:00 93 12/16/16 08:00 98.4 93 20 115/73 98 12/16/16 06:00 88 12/16/16 04:00 98.7 84 22 133/71 98 12/16/16 04:00 84 12/16/16 02:00 87 12/16/16 00:00 79 12/16/16 00:00 98.3 80 17 121/67 99 12/15/16 22:00 79 12/15/16 20:41 97 Nasal Cannula 4.00 12/15/16 20:00 98.9 75 22 123/71 97 12/15/16 20:00 79 12/15/16 18:00 79 General: No acute distress Musculoskeletal: Swelling (None in distal LE) Psychiatric: Cooperative Orientation: oriented to Self, oriented to Situation Neurologic: Speech (Verbalizing appropriately), Other (Follows commands to move both upper and lower extremities) Objective Micro and Labs Laboratory Tests Test 12/16/16 06:30 White Blood Count 27.1 Red Blood Count 3.96 Hemoglobin 11.3 Hematocrit 34.6 Mean Corpuscular Volume 87.4 Mean Corpuscular Hemoglobin 28.6 Mean Corpuscular Hemoglobin 32.7 Concent Red Cell Distribution Width 15.5 Platelet Count 763 Mean Platelet Volume 9.1 Neutrophils (%) (Auto) 81.6 Lymphocytes (%) (Auto) 8.9 Monocytes (%) (Auto) 9.1 Eosinophils (%) (Auto) 0.1 Basophils (%) (Auto) 0.3 Neutrophils # (Auto) 22.2 Lymphocytes # (Auto) 2.4 Monocytes # (Auto) 2.5 Eosinophils # (Auto) 0.0 Basophils # (Auto) 0.1 CBC Comment AUTO DIFF Differential Total Cells 100 Counted Neutrophils % (Manual) 86 Band Neutrophils % 1 Lymphocytes % 2 Monocytes % 7 Neutrophils # (Manual) 24.7 Metamyelocytes 1 Myelocytes 3 Nucleated Red Blood Cells 1 Differential Comment FINAL DIFF MANUAL Platelet Estimate HIGH Platelet Morphology Comment NORMAL Basophilic Stippling MOD Sagastume-[place] Bodies PRESENT Sodium Level 134 Potassium Level 3.9 Chloride Level 98 Carbon Dioxide Level 27.8 Anion Gap 8 Blood Urea Nitrogen 23 Creatinine 0.72 Estimat Glomerular Filtration 124 Rate Random Glucose 125 Calcium Level 8.2 Phosphorus Level 2.6 Magnesium Level 2.4 Total Bilirubin 1.7 Aspartate Amino Transf 46 (AST/SGOT) Alanine Aminotransferase 52 (ALT/SGPT) Alkaline Phosphatase 217 Total Protein 6.1 Albumin 2.8 Assessment and Plan Diagnosis: (1) Closed fracture of thoracic vertebral body (2) Closed fracture of lumbar vertebral body Assessment 1. Multiple fractures/injuries including: Multiple rib fractures Splenic laceration/renal contusion T11/T12 vertebral body fractures and L3 vertebral body fracture 2. Extubated 12/10/16 with re-intubation. Currently extubated. 3. Anxiety improved Plan 1. PT mobilizing and now mad-max assist for transfers and gait 3 feet with RW 2. OT for ADL's and currently dependent 3. Neuropsychology following and appreciate. 4. Anticipate that patient will need ongoing rehabilitation at discharge. Case management is working with insurance for ongoing rehabilitation care near patient's home in [place]. 5. Will continue to follow while hospitalized Jordana Clay MD Dec 16, 2016 17:51
[2016-12-16] MEDS: ACETAMINOPHEN/HYDROcodone 325 MG/10 MG TAB PO PRN ×2 (18:12→22:05)
[2016-12-16] MEDS: MAGNESIUM HYDROXIDE SUSP 30 ML CUP PO SCH (21:49)
[2016-12-16] MEDS: ZOLPIDEM TARTRATE 5 MG TAB PO PRN (21:49)
[2016-12-17] VITALS (15 sets, daily range): BP systolic 107–139; BP diastolic 58–70; PULSE 70–96; RESP 17–23; TEMP 98.1–98.6; O2SAT 93–98
[2016-12-17] MEDS: MORPHINE SULFATE 4 MG/ML INJ IV PUSH PRN (00:50)
[2016-12-17] MEDS: PANTOPRAZOLE SODIUM 40 MG VIAL IV SCH ×2 (00:50→23:21)
[2016-12-17 05:30] LABS: AUTOMATED NEUTROPHIL # 27.7 TH/MM3 (1.8-7.7); BASOPHIL % 0.1 % (0.0-2.0); HEMATOCRIT 34.7 % (39.0-51.0); LYMPH % 4.7 % (9.0-44.0); LYMPHOCYTE # 1.5 TH/MM3 (1.0-4.8); MEAN CELL VOLUME 88.6 FL (80.0-100.0); MEAN CORPUSCULAR HEMOGLOBIN 28.6 PG (27.0-34.0); MEAN CORPUSCULAR HGB CONC 32.3 % (32.0-36.0); MONO % 9.5 % (0.0-8.0); NEUT % 85.7 % (16.0-70.0); PLATELET COUNT 695 TH/MM3 (150-450); RED BLOOD COUNT 3.92 MIL/MM3 (4.50-5.90); RED CELL DISTRIBUTION WIDTH 16.1 % (11.6-17.2); WHITE BLOOD COUNT 32.4 TH/MM3 (4.0-11.0)
[2016-12-17 05:45] LABS: ANION GAP 6 MEQ/L (5-15); AST (GOT) 28 U/L (15-37); BICARBONATE 27.9 MEQ/L (21.0-32.0); BLOOD UREA NITROGEN 23 MG/DL (7-18); CHLORIDE 103 MEQ/L (98-107); GLOMERULAR FILTRATION RATE 140 ML/MIN (>89); MAGNESIUM 2.6 MG/DL (1.5-2.5); POTASSIUM 4.4 MEQ/L (3.5-5.1); SODIUM (NA) 137 MEQ/L (136-145)
[2016-12-17 05:47] LABS: HEMO FLAGS AUTO DIFF
[2016-12-17 05:49] LABS: ALKALINE PHOSPHATASE 239 U/L (45-117); ALT (GPT) 44 U/L (12-78); TOTAL BILIRUBIN ADULT 1.1 MG/DL (0.2-1.0)
[2016-12-17] MEDS: methylPREDNISolone SOD SUCC 125 MG/2 ML VIAL IV PUSH SCH (06:34)
[2016-12-17] MEDS: ACETAMINOPHEN/HYDROcodone 325 MG/10 MG TAB PO PRN ×2 (06:34→21:49)
--- NOTE | 2016-12-17 06:46 | RADRPT ---
EXAM DATE/TIME: 12/17/2016 04:50 [facility] COMPARISON: CHEST SINGLE AP, December 15, 2016, 2:31. INDICATIONS : Shortness of breath. MEDICAL HISTORY : Hypertension. SURGICAL HISTORY : None. ENCOUNTER: Subsequent ACUITY: 2 weeks PAIN SCORE: Non-responsive. LOCATION: Bilateral chest FINDINGS: There has been interval extubation. A left subclavian central line is present in good position. Nasog astric tube has been removed. Hazy opacity overlying the left chest may be parenchymal disease and la yering effusion. There is elevation or eventration of the right diaphragm and mild opacity at the rig ht lung base. Accounting for significant rotation of cardiac contours appear satisfactory. CONCLUSION: Interval extubation. Persistent diffuse pleural-parenchymal opacity mainly on the left. Russlel Hsu MD on December 17, 2016 at 6:43 Board Certified Radiologist. This report was verified electronically.
[2016-12-17 07:25] LABS: METAMYELOCYTES 1 % (0-1); MYELOCYTES 1 % (0-0); NEUTROPHIL # MANUAL DIFF 26.9 TH/MM3 (1.8-7.7); PLATELET ESTIMATE SMEAR HIGH (NORMAL); PLATELET MORPHOLOGY NORMAL (NORMAL); POLYS (SEG NEUTROPHILS) 81 % (16-70); SCAN/DIFF FINAL DIFF MANUAL; WBC DIFF SAMPLE 100
[2016-12-17] MEDS: CHLORHEXIDINE 0.12% (ORAL KIT) 15 ML CUP MT SCH ×2 (08:00→19:18)
[2016-12-17] MEDS: SODIUM CHLORIDE 0.9% FLUSH 5 ML FLUSH IVF SCH ×2 (08:18→20:20)
[2016-12-17] MEDS: METOPROLOL TARTRATE 25 MG TAB PO SCH ×2 (08:20→20:19)
[2016-12-17] MEDS: DOCUSATE SODIUM 100 MG CAP PO SCH ×2 (08:20→20:19)
[2016-12-17] MEDS: QUEtiapine FUMARATE 25 MG TAB PO SCH ×2 (08:21→21:50)
[2016-12-17] MEDS: TOBRAMYCIN SULFATE 0.3% OPTH OINT 3.5 GM TUBE RIGHT EYE SCH (08:21)
[2016-12-17] MEDS: LACTULOSE SYRUP 20 GM/30 ML CUP PO SCH (08:21)
[2016-12-17] MEDS ORDERED: IOHEXOL 350 MG/ML 10 ML VIAL (for RAD DIAG) IV ONE (09:38)
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
[2016-12-17] MEDS ORDERED: HAEMOPH B POLYSACCH CONJ VACCINE 0.5 ML VIAL IM ONE (10:00)
[2016-12-17] MEDS ORDERED: MENINGOCOCCAL CONJUGATE VACCINE 0.5 ML VIAL IM ONE (10:00)
[2016-12-17] MEDS ORDERED: PNEUMOCOCCAL POLYVALENT INJ 25 MCG/0.5 ML SYR IM ONE (10:00)
[2016-12-17 10:11] LABS: BACTERIA, URINE RARE /hpf; BLOOD, URINE SMALL (NEG); GLUCOSE,URINE NEG (NEG); KETONE, URINE NEG (NEG); MUCUS URINE FEW /lpf (OCC); NITRITE,URINE NEG (NEG); URINE COLOR YELLOW (YELLW/STRAW)
[2016-12-17 10:12] LABS: COMMENT (UR) CULT NOT INDICATED; CULTURE IF INDICATED CULT NOT INDICATED
[2016-12-17] MEDS: ENOXAPARIN SODIUM 40 MG/0.4 ML SYRINGE SQ SCH (11:24)
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
[2016-12-17] MEDS: methylPREDNISolone SOD SUCC 40 MG/1 ML VIAL IV PUSH SCH ×2 (13:26→21:50)
[2016-12-17] MEDS ORDERED: Vancomycin Consult Pharmacy XX SCH (18:45)
[2016-12-17] MEDS: PIPERACIL-TAZO 4.5 GM PREMIX 100 ML IV SCH (19:18)
[2016-12-17] MEDS: MAGNESIUM HYDROXIDE SUSP 30 ML CUP PO SCH (20:20)
[2016-12-17] MEDS: VANCOMYCIN INJ 2,000 MG in SODIUM CHLORID 0.9% 500 ML INJ 500 ML IV SCH (20:32)
[2016-12-17] MEDS: CHLORHEXIDINE GLUCONATE 2 % 1 PACK (2 CLOTHS) TOP SCH (21:49)
[2016-12-17] MEDS: ZOLPIDEM TARTRATE 5 MG TAB PO PRN (21:51)
[2016-12-18] MEDS: PIPERACIL-TAZO 4.5 GM PREMIX 100 ML IV SCH ×4 (01:08→20:25)
[2016-12-18 03:58] VITALS: BP 122/57; PULSE 75; RESP 16; TEMP 97.5; O2SAT 97
[2016-12-18] MEDS: methylPREDNISolone SOD SUCC 40 MG/1 ML VIAL IV PUSH SCH (05:13)
[2016-12-18 08:00] VITALS: BP 123/67; PULSE 75; RESP 18; TEMP 98.2; O2SAT 94
[2016-12-18] MEDS: CHLORHEXIDINE 0.12% (ORAL KIT) 15 ML CUP MT SCH ×2 (08:00→20:00)
[2016-12-18] MEDS: SODIUM CHLORIDE 0.9% FLUSH 5 ML FLUSH IVF SCH ×2 (09:00→20:25)
[2016-12-18] MEDS: TOBRAMYCIN SULFATE 0.3% OPTH OINT 3.5 GM TUBE RIGHT EYE SCH (09:00)
[2016-12-18 09:09] VITALS: O2SAT 99
[2016-12-18] MEDS: DOCUSATE SODIUM 100 MG CAP PO SCH ×2 (10:20→20:25)
[2016-12-18] MEDS: LACTULOSE SYRUP 20 GM/30 ML CUP PO SCH (10:20)
[2016-12-18] MEDS: METOPROLOL TARTRATE 25 MG TAB PO SCH ×2 (10:20→20:26)
[2016-12-18] MEDS: QUEtiapine FUMARATE 25 MG TAB PO SCH ×2 (10:20→20:25)
[2016-12-18] MEDS: VANCOMYCIN INJ 2,000 MG in SODIUM CHLORID 0.9% 500 ML INJ 500 ML IV SCH ×2 (10:22→20:23)
[2016-12-18] MEDS: ENOXAPARIN SODIUM 40 MG/0.4 ML SYRINGE SQ SCH (10:33)
[2016-12-18] MEDS: ACETAMINOPHEN/HYDROcodone 325 MG/10 MG TAB PO PRN ×2 (10:33→20:30)
[2016-12-18] MEDS: ONDANSETRON HCL 4 MG/2 ML VIAL IV PRN ×2 (11:23→20:29)
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
[2016-12-18 12:00] VITALS: BP 120/62; PULSE 100; RESP 18; TEMP 97.3; O2SAT 94
[2016-12-18 12:40] LABS: AUTOMATED NEUTROPHIL # 23.8 TH/MM3 (1.8-7.7); BASOPHIL # 0.2 TH/MM3 (0-0.2); BASOPHIL % 0.6 % (0.0-2.0); EOSINOPHIL # 0.1 TH/MM3 (0-0.4); EOSINOPHIL % 0.3 % (0.0-4.0); HEMATOCRIT 36.2 % (39.0-51.0); LYMPH % 5.8 % (9.0-44.0); LYMPHOCYTE # 1.6 TH/MM3 (1.0-4.8); MEAN CELL VOLUME 89.2 FL (80.0-100.0); MEAN CORPUSCULAR HEMOGLOBIN 28.8 PG (27.0-34.0); MEAN CORPUSCULAR HGB CONC 32.3 % (32.0-36.0); MONO % 9.2 % (0.0-8.0); NEUT % 84.1 % (16.0-70.0); PLATELET COUNT 645 TH/MM3 (150-450); RED BLOOD COUNT 4.06 MIL/MM3 (4.50-5.90); WHITE BLOOD COUNT 28.3 TH/MM3 (4.0-11.0)
[2016-12-18 12:44] LABS: HEMO FLAGS AUTO DIFF
[2016-12-18 13:05] LABS: BICARBONATE 25.8 MEQ/L (21.0-32.0); POTASSIUM 4.6 MEQ/L (3.5-5.1)
[2016-12-18 13:17] LABS: NEUTROPHIL # MANUAL DIFF 24.6 TH/MM3 (1.8-7.7); PLATELET ESTIMATE SMEAR HIGH (NORMAL); PLATELET MORPHOLOGY ENLARGED (NORMAL); POLYS (SEG NEUTROPHILS) 87 % (16-70); SCAN/DIFF FINAL DIFF MANUAL; WBC DIFF SAMPLE 100
[2016-12-18 16:00] VITALS: BP 117/71; PULSE 71; RESP 18; TEMP 98.1; O2SAT 96
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
[2016-12-18 20:00] VITALS: BP 123/70; PULSE 84; RESP 20; TEMP 98.7; O2SAT 96
[2016-12-18] MEDS: MAGNESIUM HYDROXIDE SUSP 30 ML CUP PO SCH (20:25)
[2016-12-19] VITALS: BP 128/72; PULSE 80; RESP 18; TEMP 98; O2SAT 95
[2016-12-19] MEDS: PANTOPRAZOLE SODIUM 40 MG VIAL IV SCH (01:32)
[2016-12-19] MEDS: PIPERACIL-TAZO 4.5 GM PREMIX 100 ML IV SCH ×2 (01:32→08:44)
[2016-12-19] MEDS: ONDANSETRON HCL 4 MG/2 ML VIAL IV PRN ×3 (02:22→16:50)
[2016-12-19] MEDS: ACETAMINOPHEN/HYDROcodone 325 MG/10 MG TAB PO PRN ×4 (02:26→21:02)
[2016-12-19] MEDS: CHLORHEXIDINE GLUCONATE 2 % 1 PACK (2 CLOTHS) TOP SCH (03:31)
[2016-12-19] MEDS ORDERED: PHARMACY ORDERED LAB XX ONE (07:45)
[2016-12-19 07:53] LABS: AUTOMATED NEUTROPHIL # 14.1 TH/MM3 (1.8-7.7); BASOPHIL % 0.2 % (0.0-2.0); EOSINOPHIL # 0.6 TH/MM3 (0-0.4); EOSINOPHIL % 2.8 % (0.0-4.0); HEMATOCRIT 34.7 % (39.0-51.0); LYMPH % 12.1 % (9.0-44.0); LYMPHOCYTE # 2.6 TH/MM3 (1.0-4.8); MEAN CELL VOLUME 89.9 FL (80.0-100.0); MEAN CORPUSCULAR HEMOGLOBIN 28.7 PG (27.0-34.0); MEAN CORPUSCULAR HGB CONC 31.9 % (32.0-36.0); MONO % 18.3 % (0.0-8.0); NEUT % 66.6 % (16.0-70.0); PLATELET COUNT 622 TH/MM3 (150-450); RED BLOOD COUNT 3.86 MIL/MM3 (4.50-5.90); RED CELL DISTRIBUTION WIDTH 17.3 % (11.6-17.2); WHITE BLOOD COUNT 21.2 TH/MM3 (4.0-11.0)
[2016-12-19 07:58] LABS: HEMO FLAGS AUTO DIFF
[2016-12-19 08:00] VITALS: BP 121/64; PULSE 80; RESP 18; TEMP 98.1; O2SAT 93
[2016-12-19] MEDS: CHLORHEXIDINE 0.12% (ORAL KIT) 15 ML CUP MT SCH (08:00)
[2016-12-19 08:21] LABS: ALKALINE PHOSPHATASE 288 U/L (45-117); ALT (GPT) 30 U/L (12-78); ANION GAP 7 MEQ/L (5-15); AST (GOT) 20 U/L (15-37); BICARBONATE 30.1 MEQ/L (21.0-32.0); BLOOD UREA NITROGEN 14 MG/DL (7-18); CHLORIDE 101 MEQ/L (98-107); GLOMERULAR FILTRATION RATE 101 ML/MIN (>89); MAGNESIUM 2.4 MG/DL (1.5-2.5); POTASSIUM 3.8 MEQ/L (3.5-5.1); SODIUM (NA) 138 MEQ/L (136-145); TOTAL BILIRUBIN ADULT 0.7 MG/DL (0.2-1.0)
[2016-12-19 08:31] LABS: EOSINOPHILS 5 % (0-4); MYELOCYTES 2 % (0-0); NEUTROPHIL # MANUAL DIFF 14.8 TH/MM3 (1.8-7.7); POLYS (SEG NEUTROPHILS) 68 % (16-70); WBC DIFF SAMPLE 100
[2016-12-19 08:32] LABS: HOWELL-JOLLY BODIES PRESENT (NONE SEEN); PLATELET ESTIMATE SMEAR HIGH (NORMAL); PLATELET MORPHOLOGY NORMAL (NORMAL); SCAN/DIFF FINAL DIFF MANUAL
[2016-12-19] MEDS: VANCOMYCIN INJ 2,000 MG in SODIUM CHLORID 0.9% 500 ML INJ 500 ML IV SCH (08:44)
[2016-12-19] MEDS: QUEtiapine FUMARATE 25 MG TAB PO SCH ×2 (08:45→21:02)
[2016-12-19] MEDS: METOPROLOL TARTRATE 25 MG TAB PO SCH ×2 (08:45→21:02)
[2016-12-19] MEDS: DOCUSATE SODIUM 100 MG CAP PO SCH ×2 (08:45→21:02)
[2016-12-19] MEDS: LACTULOSE SYRUP 20 GM/30 ML CUP PO SCH (08:47)
[2016-12-19] MEDS: SODIUM CHLORIDE 0.9% FLUSH 5 ML FLUSH IVF SCH ×2 (08:47→21:03)
[2016-12-19] MEDS: fentaNYL 25 MCG/HR PATCH TD SCH (08:47)
[2016-12-19] MEDS: TOBRAMYCIN SULFATE 0.3% OPTH OINT 3.5 GM TUBE RIGHT EYE SCH (08:48)
[2016-12-19] MEDS ORDERED: REMOVE OLD PATCH T-DERMAL SCH (09:00)
[2016-12-19] MEDS: FAMOTIDINE 20 MG TAB PO SCH ×2 (09:21→21:02)
[2016-12-19] MEDS ORDERED: methylPREDNISolone SOD SUCC 40 MG/1 ML VIAL IV PUSH ONE (10:00)
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
[2016-12-19] MEDS: ENOXAPARIN SODIUM 40 MG/0.4 ML SYRINGE SQ SCH (10:57)
[2016-12-19 12:00] VITALS: BP 114/67; PULSE 95; RESP 18; TEMP 98; O2SAT 93
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
[2016-12-19] MEDS: AMOXICILLIN/CLAVULANATE K 875 MG TAB PO SCH ×2 (14:48→19:03)
--- NOTE | 2016-12-19 15:32 | HHI.PR ---
Subjective Subjective Comments Patient awake and alert. Family at bedside. Reports generalized discomfort but no significant pain. Anxious to increase activity and return home. Allergies: Coded Allergies: No Known Allergies (Unverified , 12/13/16) Review of Systems All other ROS: ROS reviewed as documented in chart Exam I&O / VS 12/18/16 12/18/16 12/19/16 15:00 23:00 07:00 Intake Total 600 ml 380 ml 1235 ml Output Total 1300 ml 450 ml 1450 ml Balance -700 ml -70 ml -215 ml Intake Oral 600 ml 380 ml 240 ml IV Total 995 ml Output Urine Total 1300 ml 450 ml 1450 ml # Bowel Movements 1 0 0 Vital Signs Date Time Temp Pulse Resp B/P Pulse Ox O2 Delivery O2 Flow Rate FiO2 12/19/16 12:00 98.0 95 18 114/67 93 12/19/16 09:45 18 12/19/16 09:45 18 12/19/16 08:00 98.1 80 18 121/64 93 12/19/16 00:00 98.0 80 18 128/72 95 12/18/16 20:00 98.7 84 20 123/70 96 12/18/16 16:00 98.1 71 18 117/71 96 General: No acute distress Musculoskeletal: Swelling (None in distal LE) Psychiatric: Cooperative Orientation: oriented to Self, oriented to Place, oriented to Time, oriented to Situation Neurologic: EOM (Intact), Speech (Clear), Other (Moves both upper and lower extremities to command) Objective Micro and Labs Laboratory Tests Test 12/19/16 07:01 White Blood Count 21.2 Red Blood Count 3.86 Hemoglobin 11.1 Hematocrit 34.7 Mean Corpuscular Volume 89.9 Mean Corpuscular Hemoglobin 28.7 Mean Corpuscular Hemoglobin 31.9 Concent Red Cell Distribution Width 17.3 Platelet Count 622 Mean Platelet Volume 10.5 Neutrophils (%) (Auto) 66.6 Lymphocytes (%) (Auto) 12.1 Monocytes (%) (Auto) 18.3 Eosinophils (%) (Auto) 2.8 Basophils (%) (Auto) 0.2 Neutrophils # (Auto) 14.1 Lymphocytes # (Auto) 2.6 Monocytes # (Auto) 3.9 Eosinophils # (Auto) 0.6 Basophils # (Auto) 0.0 CBC Comment AUTO DIFF Differential Total Cells 100 Counted Neutrophils % (Manual) 68 Lymphocytes % 12 Monocytes % 13 Eosinophils % 5 Neutrophils # (Manual) 14.8 Myelocytes 2 Differential Comment FINAL DIFF MANUAL Platelet Estimate HIGH Platelet Morphology Comment NORMAL Sagastume-Post Bodies PRESENT Sodium Level 138 Potassium Level 3.8 Chloride Level 101 Carbon Dioxide Level 30.1 Anion Gap 7 Blood Urea Nitrogen 14 Creatinine 0.86 Estimat Glomerular Filtration 101 Rate Random Glucose 96 Calcium Level 8.1 Phosphorus Level 3.2 Magnesium Level 2.4 Total Bilirubin 0.7 Aspartate Amino Transf 20 (AST/SGOT) Alanine Aminotransferase 30 (ALT/SGPT) Alkaline Phosphatase 288 Total Protein 5.2 Albumin 2.5 Vancomycin Level Trough 15.4 Date/Time Procedure Status Source Growth 12/18/16 06:10 Urine Culture - Preliminary Resulted Urine Clean Catch NO GROWTH IN 24 HOURS. 12/17/16 11:47 Aerobic Blood Culture - Preliminary Resulted Blood Peripheral NO GROWTH IN 2 DAYS 12/17/16 11:47 Anaerobic Blood Culture - Preliminary Resulted Blood Peripheral NO GROWTH IN 2 DAYS 12/17/16 09:30 Gram Stain - Final Complete Sputum Expectorated Sputum 12/17/16 09:30 Sputum Culture - Final Complete Sputum Expectorated Sputum HEAVY GROWTH NORMAL RESPIRATORY REGLA Assessment and Plan Diagnosis: (1) Closed fracture of thoracic vertebral body (2) Closed fracture of lumbar vertebral body Assessment 1. Multiple fractures/injuries including: Multiple rib fractures Splenic laceration/renal contusion T11/T12 vertebral body fractures and L3 vertebral body fracture 2. Extubated 12/10/16 with re-intubation. Extubated 12/15/16 3. Anxiety improved Plan 1. PT mobilizing and now mod assist assist of 2 for transfers and gait 3 feet with rolling walker with fair balance 2. Tolerating regular diet per speech therapy recommendations 3. OT for ADLs 3. Neuropsychology following and appreciate. 4. Anticipate that patient will need ongoing rehabilitation at discharge. Case management is working with insurance for ongoing inpatient rehabilitation care near patient's home in [place]. Discussed rehabilitation plan of care with patient and family and questions answered 5. Will continue to follow while hospitalized Jordana Clay MD Dec 19, 2016 15:32
[2016-12-19 16:00] VITALS: BP 126/72; PULSE 97; RESP 18; TEMP 98.5; O2SAT 96
[2016-12-19 20:05] VITALS: BP 129/74; PULSE 94; RESP 16; TEMP 97.9; O2SAT 100
[2016-12-19] MEDS: MAGNESIUM HYDROXIDE SUSP 30 ML CUP PO SCH (21:02)
[2016-12-19] MEDS: ZOLPIDEM TARTRATE 5 MG TAB PO PRN (23:29)
[2016-12-20] VITALS: BP 121/73; PULSE 82; RESP 16; TEMP 97.6; O2SAT 95
[2016-12-20 03:50] VITALS: BP 106/66; PULSE 75; RESP 16; TEMP 96.7; O2SAT 94
[2016-12-20] MEDS: ACETAMINOPHEN/HYDROcodone 325 MG/10 MG TAB PO PRN ×2 (03:51→09:48)
[2016-12-20 08:00] VITALS: BP 117/62; PULSE 74; RESP 18; TEMP 97; O2SAT 94
[2016-12-20] MEDS: TOBRAMYCIN SULFATE 0.3% OPTH OINT 3.5 GM TUBE RIGHT EYE SCH (09:47)
[2016-12-20] MEDS: METOPROLOL TARTRATE 25 MG TAB PO SCH (09:47)
[2016-12-20] MEDS: AMOXICILLIN/CLAVULANATE K 875 MG TAB PO SCH (09:47)
[2016-12-20] MEDS: FAMOTIDINE 20 MG TAB PO SCH (09:47)
[2016-12-20] MEDS: LACTULOSE SYRUP 20 GM/30 ML CUP PO SCH (09:47)
[2016-12-20] MEDS: DOCUSATE SODIUM 100 MG CAP PO SCH (09:48)
[2016-12-20] MEDS: QUEtiapine FUMARATE 25 MG TAB PO SCH (09:48)
[2016-12-20] MEDS: ONDANSETRON HCL 4 MG/2 ML VIAL IV PRN (09:49)
[2016-12-20] MEDS: SODIUM CHLORIDE 0.9% FLUSH 5 ML FLUSH IVF SCH (09:50)
[2016-12-20] MEDS ORDERED: methylPREDNISolone SOD SUCC 40 MG/1 ML VIAL IV PUSH SCH (10:00)
[2016-12-20] MEDS ORDERED: ENOX40P SQ (11:05)
[2016-12-20] MEDS ORDERED: HYDR-3583 PO (11:05)
[2016-12-20] MEDS ORDERED: LACT10SO PO (11:05)
[2016-12-20] MEDS ORDERED: AMBI5TAB PO (11:05)
[2016-12-20] MEDS ORDERED: DOCU1CAP39 PO (11:05)
[2016-12-20] MEDS ORDERED: QUET1TAB7 PO (11:05)
[2016-12-20] MEDS ORDERED: AMOX875T2 PO (11:05)
[2016-12-20] MEDS ORDERED: METO25TA3 PO (11:05)
[2016-12-20] MEDS ORDERED: FENT25T TD (11:05)
[2016-12-20] MEDS ORDERED: TOBR.3%O RIGHT EYE (11:05)
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
[2016-12-20 12:00] VITALS: BP 110/69; PULSE 75; RESP 18; TEMP 98.3; O2SAT 94
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
[2016-12-29] MEDS ORDERED: WHEEMIS3 (13:32)
[2016-12-29] MEDS ORDERED: COMMODE 3-IN-11 MIS (13:32)
[2017-01-02] MEDS ORDERED: DOCU1CAP39 PO (10:35)
[2017-01-02] MEDS ORDERED: METO25TA3 PO (10:35)
[2017-01-02] MEDS ORDERED: HYDR-3583 PO (10:35)
[2017-01-02] MEDS ORDERED: BACI500O2 TOP (10:35)
[2017-01-02] MEDS ORDERED: FLEE5TAB PO (10:35)
[2017-01-02] MEDS ORDERED: PANT40TA3 PO (10:35)
== END 2016-12-20 13:04 | DRG 957 ==
LOC: NEPI 22:33 → EDBD 23:34 → NEDA 23:34 → N03A 12-05 → N06B 12-17 22:51
PROVIDERS: ADMIT Surgery; ATTEND Surgery
PROC: 0W9B30Z Drainage of Left Pleural Cavity with Drainage Device, Percutaneous Approach (ICD-10-PCS; 2016-12-04)
PROC: 30233N1 Transfusion of Nonautologous Red Blood Cells into Peripheral Vein, Percutaneous Approach (ICD-10-PCS; 2016-12-04)
PROC: 5A1955Z Respiratory Ventilation, Greater than 96 Consecutive Hours (ICD-10-PCS; 2016-12-05)
PROC: 0DCW0ZZ Extirpation of Matter from Peritoneum, Open Approach (ICD-10-PCS; 2016-12-05)
PROC: 0W9B30Z Drainage of Left Pleural Cavity with Drainage Device, Percutaneous Approach (ICD-10-PCS; 2016-12-05)
PROC: 07TP0ZZ Resection of Spleen, Open Approach (ICD-10-PCS; principal; 2016-12-05 00:35)
PROC: 03HY32Z Insertion of Monitoring Device into Upper Artery, Percutaneous Approach (ICD-10-PCS; 2016-12-06)
PROC: 0QB30ZZ Excision of Left Pelvic Bone, Open Approach (ICD-10-PCS; 2016-12-09)
PROC: 0RGA071 Fusion of Thoracolumbar Vertebral Joint with Autologous Tissue Substitute, Posterior Approach, Posterior Column, Open Approach (ICD-10-PCS; 2016-12-09)
PROC: 0RG60Z1 (ICD-10-PCS; 2016-12-09)
DX: S36.039A Unspecified laceration of spleen, initial encounter (principal); S27.2XXA Traumatic hemopneumothorax, initial encounter; J96.01 Acute respiratory failure with hypoxia; S22.019A Unspecified fracture of first thoracic vertebra, initial encounter for closed fracture; J80 Acute respiratory distress syndrome; S32.019A Unspecified fracture of first lumbar vertebra, initial encounter for closed fracture; S32.029A Unspecified fracture of second lumbar vertebra, initial encounter for closed fracture; S37.022A Major contusion of left kidney, initial encounter; S22.089A Unspecified fracture of T11-T12 vertebra, initial encounter for closed fracture; S32.039A Unspecified fracture of third lumbar vertebra, initial encounter for closed fracture; S22.42XA Multiple fractures of ribs, left side, initial encounter for closed fracture; S27.322A Contusion of lung, bilateral, initial encounter; I47.1 Supraventricular tachycardia; B02.8 Zoster with other complications; R65.10 Systemic inflammatory response syndrome (SIRS) of non-infectious origin without acute organ dysfunction; J98.11 Atelectasis; S22.029A Unspecified fracture of second thoracic vertebra, initial encounter for closed fracture; M48.04 Spinal stenosis, thoracic region; J98.01 Acute bronchospasm; J38.5 Laryngeal spasm; F41.0 Panic disorder [episodic paroxysmal anxiety]; D72.829 Elevated white blood cell count, unspecified; M40.14 Other secondary kyphosis, thoracic region; W20.8XXA Other cause of strike by thrown, projected or falling object, initial encounter; Y93.82 Activity, spectator at an event; Y92.39 Other specified sports and athletic area as the place of occurrence of the external cause; Z23 Encounter for immunization
CPT/HCPCS: 32551; 36430; 36556; 36600; 70450; 71010; 71260; 72070; 72125; 72128; 72131; 72141; 72146; 72148; 72170; 74177; 76000; 76937; 80048; 80053; 80202; 81001; 82435; 82565; 82805; 82947; 82948; 83735; 84100; 84132; 84155; 84295; 84520; 85007; 85014; 85018; 85025; 85027; 85610; 85730; 86850; 86900; 86901; 86920; 87040; 87070; 87086; 87205; 87641; 88305; 90471; 90732; 90734; 93005; 93306; 94002; 94003; 94150; 94640; 94664; 94667; 94668; 94770; 96361; 96374; 99291; C1713; C9113; C9399; G0390; J0131; J0153; J0171; J0461; J0690; J1170; J1650; J1940; J1956; J2250; J2270; J2370; J2405; J2543; J2920; J2930; J3010; J3370; J3480; J7030; J7040; J7050; J7120; L0484; P9016; P9045; Q9967